=== PATIENT | male | born 1950 | race Caucasian/White ===

== ENCOUNTER 2016-11-10 18:31 | Inpatient (IN) | payer MEDICARE, BC ==
[~2016-11-10] VITALS: Ht 180.3 cm; Wt 121.3 kg
[~2016-11-10 18:31] MED LIST: OXYC40 PO
[2016-11-10 18:33] VITALS: BP 230/110; PULSE 77; RESP 24; TEMP 98.4; O2SAT 91
--- NOTE | 2016-11-10 18:46 | PD ---
HPI Chief Complaint: Neuro Symptoms/ Deficits Time Seen by Provider: 18:36 Travel History International Travel<30 days: No Contact w/Intl Traveler<30days: No Traveled to known affect area: No History of Present Illness HPI Patient is a 65-year-old male with hx of htn, who presents to emergency room for evaluation of possible CVA. Patient reports that he woke up from sleep 2 days ago and had weakness to his left upper extremity. Patient reports that he thought that his weakness was because he slept on it wrong, reports that it has been 2 days and he still has increased weakness to his left upper extremity. Reports that he doesn't feel weak to his left lower extremity, reports that he does feel like he is dragging his left leg when he walks. No hx of cva in the past. PFSH Social History Tobacco Use: No Allergies-Medications (Allergen,Severity, Reaction): Uncoded Allergies: EPOXY (Adverse Reaction, Intermediate, 11/10/16) Reported Meds & Prescriptions Reported Meds & Active Scripts Active Reported OxyCONTIN ER (Oxycodone HCl) 40 Mg Tabcr 40 Mg PO TID PRN Review of Systems General / Constitutional: No: Fever Eyes: No: Visual changes HENT: No: Headaches Cardiovascular: No: Chest Pain or Discomfort Respiratory: No: Shortness of Breath Gastrointestinal: No: Abdominal Pain Genitourinary: No: Dysuria Musculoskeletal: No: Pain Skin: No Rash Neurologic: Positive: Coordination Problem, Change in Mentation, No: Weakness Psychiatric: No: Depression Endocrine: No: Polydipsia Hematologic/Lymphatic: No: Easy Bruising Physical Exam Narrative GENERAL: mild distress SKIN: Warm and dry. HEAD: Atraumatic. Normocephalic. EYES: Pupils equal and round. No scleral icterus. No injection or drainage. ENT: No nasal bleeding or discharge. Mucous membranes pink and moist. NECK: Trachea midline. No JVD. CARDIOVASCULAR: Regular rate and rhythm. No murmur appreciated. RESPIRATORY: No accessory muscle use. Clear to auscultation. Breath sounds equal bilaterally. GASTROINTESTINAL: Abdomen soft, non-tender, nondistended. Hepatic and splenic margins not palpable. MUSCULOSKELETAL: No obvious deformities. No clubbing. No cyanosis. No edema. NEUROLOGICAL: Awake and alert. No obvious cranial nerve deficits. patient with left side upper extremity weakness. Normal speech. NIH Scale 1 PSYCHIATRIC: Appropriate mood and affect; insight and judgment normal. Data Data Last Documented VS Vital Signs Date Time Temp Pulse Resp B/P Pulse Ox O2 Delivery O2 Flow Rate FiO2 11/10/16 19:13 71 18 177/92 94 Room Air 11/10/16 18:33 98.4 Orders Electrocardiogram (11/10/16 18:37) Prothrombin Time / Inr (Pt) (11/10/16 18:37) Act Partial Throm Time (Ptt) (11/10/16 18:37) Complete Blood Count With Diff (11/10/16 18:37) Comprehensive Metabolic Panel (11/10/16 18:37) Creatine Kinase (Cpk) (11/10/16 18:37) Troponin I (11/10/16 18:37) Urinalysis - C+S If Indicated (11/10/16 18:37) Ct Brain W/O Iv Contrast(Rout) (11/10/16 18:37) Chest, Single Ap (11/10/16 18:37) Ecg Monitoring (11/10/16 18:37) Iv Access Insert/Monitor (11/10/16 18:37) Oximetry (11/10/16 18:37) Blood Glucose (11/10/16 18:37) Labetalol Inj (Trandate Inj) (11/10/16 19:15) CKMB (11/10/16 19:58) CKMB% (11/10/16 19:58) Admit Order (Ed Use Only) (11/10/16 21:23) Labs Laboratory Tests Test 11/10/16 11/10/16 18:45 19:58 White Blood Count 7.6 TH/MM3 Red Blood Count 4.94 MIL/MM3 Hemoglobin 15.5 GM/DL Hematocrit 45.0 % Mean Corpuscular Volume 91.1 FL Mean Corpuscular Hemoglobin 31.5 PG Mean Corpuscular Hemoglobin 34.5 % Concent Red Cell Distribution Width 13.2 % Platelet Count 204 TH/MM3 Mean Platelet Volume 8.3 FL Neutrophils (%) (Auto) 62.3 % Lymphocytes (%) (Auto) 28.3 % Monocytes (%) (Auto) 6.7 % Eosinophils (%) (Auto) 2.2 % Basophils (%) (Auto) 0.5 % Neutrophils # (Auto) 4.7 TH/MM3 Lymphocytes # (Auto) 2.1 TH/MM3 Monocytes # (Auto) 0.5 TH/MM3 Eosinophils # (Auto) 0.2 TH/MM3 Basophils # (Auto) 0.0 TH/MM3 CBC Comment DIFF FINAL Differential Comment Prothrombin Time 11.5 SEC Prothromb Time International 1.0 RATIO Ratio Activated Partial 26.9 SEC Thromboplast Time Sodium Level 141 MEQ/L Potassium Level 3.7 MEQ/L Chloride Level 106 MEQ/L Carbon Dioxide Level 25.9 MEQ/L Anion Gap 9 MEQ/L Blood Urea Nitrogen 19 MG/DL Creatinine 0.93 MG/DL Estimat Glomerular Filtration 81 ML/MIN Rate Random Glucose 111 MG/DL Calcium Level 8.4 MG/DL Total Bilirubin 0.3 MG/DL Aspartate Amino Transf 29 U/L (AST/SGOT) Alanine Aminotransferase 32 U/L (ALT/SGPT) Alkaline Phosphatase 69 U/L Total Creatine Kinase 440 U/L Creatine Kinase MB 7.5 NG/ML Creatine Kinase MB % 1.7 % Troponin I LESS THAN 0.02 NG/ML Total Protein 6.4 GM/DL Albumin 3.7 GM/DL MDM Medical Decision Making Medical Screen Exam Complete: Yes Emergency Medical Condition: Yes Interpretation(s) Vital Signs Date Time Temp Pulse Resp B/P Pulse Ox O2 Delivery O2 Flow Rate FiO2 11/10/16 18:49 95 Room Air 11/10/16 18:33 98.4 77 24 230/110 91 Differential Diagnosis CVA, TIA, electrolyte abnormality, arrythmia Narrative Course Patient is a 65-year-old male with hx of htn, who presents to emergency room for evaluation of possible CVA. Patient reports that he woke up from sleep 2 days ago and had weakness to his left upper extremity. Patient reports that he thought that his weakness was because he slept on it wrong, reports that it has been 2 days and he still has increased weakness to his left upper extremity. Reports that he doesn't feel weak to his left lower extremity, reports that he does feel like he is dragging his left leg when he walks. No hx of cva in the past. Labs as well as CT of the head ordered, EKG ordered. Patient was placed on a monitor technician upon arrival to the emergency room. Patient was signed out to the physician at change of shift. Pending labs as well as CAT scan of the head and dispo Latrice Helm DO Nov 10, 2016 18:46
[2016-11-10 18:49] VITALS: O2SAT 95
[2016-11-10 19:08] LABS: AUTOMATED NEUTROPHIL # 4.7 TH/MM3 (1.8-7.7); BASOPHIL % 0.5 % (0.0-2.0); EOSINOPHIL # 0.2 TH/MM3 (0-0.4); EOSINOPHIL % 2.2 % (0.0-4.0); HEMO FLAGS DIFF FINAL; LYMPH % 28.3 % (9.0-44.0); LYMPHOCYTE # 2.1 TH/MM3 (1.0-4.8); MEAN CELL VOLUME 91.1 FL (80.0-100.0); MEAN CORPUSCULAR HEMOGLOBIN 31.5 PG (27.0-34.0); MEAN CORPUSCULAR HGB CONC 34.5 % (32.0-36.0); MONO % 6.7 % (0.0-8.0); NEUT % 62.3 % (16.0-70.0); PLATELET COUNT 204 TH/MM3 (150-450); RED BLOOD COUNT 4.94 MIL/MM3 (4.50-5.90); RED CELL DISTRIBUTION WIDTH 13.2 % (11.6-17.2); WHITE BLOOD COUNT 7.6 TH/MM3 (4.0-11.0)
[2016-11-10 19:13] VITALS: BP 177/92; PULSE 71; RESP 18; O2SAT 94
--- NOTE | 2016-11-10 19:14 | RADRPT ---
EXAM DATE/TIME: 11/10/2016 19:02 [facility] COMPARISON: No previous studies available for comparison. INDICATIONS : Arm tingling for two days. RADIATION DOSE: 58.62 CTDIvol (mGy) MEDICAL HISTORY : Hypertension. SURGICAL HISTORY : None. ENCOUNTER: Initial ACUITY: 1 day PAIN SCALE: 0/10 LOCATION: cranial TECHNIQUE: Multiple contiguous axial images were obtained of the head. Using automated exposure control and adj ustment of the mA and/or kV according to patient size, radiation dose was kept as low as reasonably a chievable to obtain optimal diagnostic quality images. FINDINGS: CEREBRUM: The ventricles are normal for age. No evidence of midline shift, mass lesion, hemorrhage or acute in farction. No extra-axial fluid collections are seen. There is diffuse cerebral atrophy. Chronic low attenuation seen in the periventricular white matter. POSTERIOR FOSSA: The cerebellum and brainstem are intact. The 4th ventricle is midline. The cerebellopontine angle i s unremarkable. EXTRACRANIAL: The visualized portion of the orbits is intact. SKULL: The calvaria is intact. No evidence of skull fracture. CONCLUSION: No acute intracranial abnormality. Atrophy and chronic white matter changes. Nico Mendes MD on November 10, 2016 at 19:11 Board Certified Radiologist. This report was verified electronically.
[2016-11-10] MEDS ORDERED: LABETALOL HCL 100 MG/20 ML VIAL IV PUSH ONE (19:15)
[2016-11-10 19:23] LABS: APTT (PATIENT) 26.9 SEC (24.3-30.1); PROTHROMBIN TIME - PATIENT 11.5 SEC (9.8-11.6)
--- NOTE | 2016-11-10 19:27 | RADRPT ---
EXAM DATE/TIME: 11/10/2016 19:07 [facility] COMPARISON: No previous studies available for comparison. INDICATIONS : Left sided numbness. MEDICAL HISTORY : None. SURGICAL HISTORY : None. ENCOUNTER: Initial ACUITY: 1 day PAIN SCORE: 0/10 LOCATION: Bilateral chest FINDINGS: A single view of the chest demonstrates the lungs to be symmetrically aerated without evidence of mas s, infiltrate or effusion. The cardiomediastinal contours are unremarkable. Osseous structures are intact. CONCLUSION: No acute disease. Jona Lundberg MD on November 10, 2016 at 19:20 Board Certified Radiologist. This report was verified electronically.
[2016-11-10 21:09] LABS: ALKALINE PHOSPHATASE 69 U/L (45-117); ALT (GPT) 32 U/L (12-78); ANION GAP 9 MEQ/L (5-15); AST (GOT) 29 U/L (15-37); BICARBONATE 25.9 MEQ/L (21.0-32.0); BLOOD UREA NITROGEN 19 MG/DL (7-18); CHLORIDE 106 MEQ/L (98-107); CREATINE KINASE 440 U/L (39-308); GLOMERULAR FILTRATION RATE 81 ML/MIN (>89); POTASSIUM 3.7 MEQ/L (3.5-5.1); SODIUM (NA) 141 MEQ/L (136-145); TOTAL BILIRUBIN ADULT 0.3 MG/DL (0.2-1.0)
[2016-11-10 21:21] LABS: CKMB 7.5 NG/ML (0.5-3.6)
[2016-11-10] MEDS ORDERED: ENALAPRILAT 1.25 MG/ML VIAL IV PRN (21:45)
[2016-11-10] MEDS ORDERED: SODIUM CHLORIDE 0.9% FLUSH 5 ML FLUSH IVF PRN (21:45)
[2016-11-10] MEDS ORDERED: GLUCAGON 1 MG/ML VIAL IM/SQ PRN (21:45)
[2016-11-10] MEDS ORDERED: DEXTROSE 50% IN WATER 50 ML VIAL(D50) IV PUSH PRN (21:45)
[2016-11-10 22:00] VITALS: BP 153/78; PULSE 69; RESP 16; O2SAT 97
--- NOTE | 2016-11-10 22:52 | PD ---
Data Data Last Documented VS Vital Signs Date Time Temp Pulse Resp B/P Pulse Ox O2 Delivery O2 Flow Rate FiO2 11/10/16 19:13 71 18 177/92 94 Room Air 11/10/16 18:33 98.4 Orders Electrocardiogram (11/10/16 18:37) Prothrombin Time / Inr (Pt) (11/10/16 18:37) Act Partial Throm Time (Ptt) (11/10/16 18:37) Complete Blood Count With Diff (11/10/16 18:37) Comprehensive Metabolic Panel (11/10/16 18:37) Creatine Kinase (Cpk) (11/10/16 18:37) Troponin I (11/10/16 18:37) Urinalysis - C+S If Indicated (11/10/16 18:37) Ct Brain W/O Iv Contrast(Rout) (11/10/16 18:37) Chest, Single Ap (11/10/16 18:37) Ecg Monitoring (11/10/16 18:37) Iv Access Insert/Monitor (11/10/16 18:37) Oximetry (11/10/16 18:37) Blood Glucose (11/10/16 18:37) Labetalol Inj (Trandate Inj) (11/10/16 19:15) CKMB (11/10/16 19:58) CKMB% (11/10/16 19:58) Admit Order (Ed Use Only) (11/10/16 21:23) Labs Laboratory Tests Test 11/10/16 11/10/16 18:45 19:58 White Blood Count 7.6 TH/MM3 Red Blood Count 4.94 MIL/MM3 Hemoglobin 15.5 GM/DL Hematocrit 45.0 % Mean Corpuscular Volume 91.1 FL Mean Corpuscular Hemoglobin 31.5 PG Mean Corpuscular Hemoglobin 34.5 % Concent Red Cell Distribution Width 13.2 % Platelet Count 204 TH/MM3 Mean Platelet Volume 8.3 FL Neutrophils (%) (Auto) 62.3 % Lymphocytes (%) (Auto) 28.3 % Monocytes (%) (Auto) 6.7 % Eosinophils (%) (Auto) 2.2 % Basophils (%) (Auto) 0.5 % Neutrophils # (Auto) 4.7 TH/MM3 Lymphocytes # (Auto) 2.1 TH/MM3 Monocytes # (Auto) 0.5 TH/MM3 Eosinophils # (Auto) 0.2 TH/MM3 Basophils # (Auto) 0.0 TH/MM3 CBC Comment DIFF FINAL Differential Comment Prothrombin Time 11.5 SEC Prothromb Time International 1.0 RATIO Ratio Activated Partial 26.9 SEC Thromboplast Time Sodium Level 141 MEQ/L Potassium Level 3.7 MEQ/L Chloride Level 106 MEQ/L Carbon Dioxide Level 25.9 MEQ/L Anion Gap 9 MEQ/L Blood Urea Nitrogen 19 MG/DL Creatinine 0.93 MG/DL Estimat Glomerular Filtration 81 ML/MIN Rate Random Glucose 111 MG/DL Calcium Level 8.4 MG/DL Total Bilirubin 0.3 MG/DL Aspartate Amino Transf 29 U/L (AST/SGOT) Alanine Aminotransferase 32 U/L (ALT/SGPT) Alkaline Phosphatase 69 U/L Total Creatine Kinase 440 U/L Creatine Kinase MB 7.5 NG/ML Creatine Kinase MB % 1.7 % Troponin I LESS THAN 0.02 NG/ML Total Protein 6.4 GM/DL Albumin 3.7 GM/DL MDM Supervised Visit with CROW: No Narrative Course This is a 65-year-old male who presents to the emergency department with 2 days of left upper extremity weakness and some difficulty walking. Dr. eHlm was concerned the patient may have had a stroke. She was placed on a monitor and an IV was established. Labs are obtained which were reassuring. CT of the head was negative for intracranial hemorrhage. Patient will be admitted for stroke assessment. He is quite hypertensive and Dr. Helm treated him with 10 mg of IV labetalol. Physician Communication Physician Communication Discussed with Dr. Brasher Diagnosis Primary Impression: Weakness Admitting Information Admitting Physician Requests: Admit Marianela Polanco MD Nov 10, 2016 22:52
[2016-11-11] VITALS (9 sets, daily range): BP systolic 129–186; BP diastolic 67–94; PULSE 56–75; RESP 14–21; TEMP 97.7–98.4; O2SAT 96–98
[2016-11-11 00:43] LABS: BLOOD, URINE NEG (NEG); GLUCOSE,URINE NEG (NEG); KETONE, URINE NEG (NEG); MUCUS URINE MANY /lpf (OCC); NITRITE,URINE NEG (NEG); PH, URINE 5.5 (5.0-8.5); RENAL EPITHELIAL CELLS <1 /hpf; SQUAMOUS EPITHELIAL CELL URINE 5 /hpf (0-5); URINE COLOR YELLOW (YELLW/STRAW)
[2016-11-11 00:45] LABS: COMMENT (UR) CATH-CULT NOT IND; CULTURE IF INDICATED CATH CULTURE NOT IND
--- NOTE | 2016-11-11 01:25 | HHI.HP ---
[facility] Primary Care Physician No Primary Care Physician Admission Diagnosis weakness, possible stroke Diagnoses: (1) Left arm weakness (2) Chronic back pain Chief Complaint: Left arm weakness Travel History International Travel<30 Days: No Contact w/Intl Traveler <30 Da: No Traveled to Known Affected Are: No History of Present Illness The patient is a 65-year-old male who presented to the emergency department with complaint of left upper extremity weakness. This started about 2 days ago. 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 He states that he knocked it over and also knocked over plates that were on the same table. His states that his gait has been abnormal, telling him that he looked like he was drunk. He denies headache, vision changes, chest pain, or dyspnea. He denies paresthesias. He has not noticed any left leg weakness. Review of Systems Constitutional: DENIES: Fever, Chills, Night Sweats Eyes: DENIES: Blurred vision, Vision loss Ears, nose, mouth, throat: DENIES: Hearing loss Respiratory: DENIES: Cough, Wheezing, Sputum production, Shortness of breath Cardiovascular: DENIES: Chest pain, Palpitations, Dyspnea on Exertion, Lower Extremity Edema Gastrointestinal: DENIES: Abdominal pain, Constipation, Diarrhea, Nausea, Vomiting Genitourinary: DENIES: Urinary frequency, Urinary incontinence, Urgency, Hematuria, Dysuria, Nocturia Musculoskeletal: DENIES: Joint pain, Muscle aches Integumentary: DENIES: Pruritus, Rash Hematologic/lymphatic: DENIES: Bruising Neurologic: COMPLAINS OF: Abnormal gait, Localized weakness, DENIES: Headache , Paresthesias Past Family Social History Past Medical History Hypertension Chronic back pain Past Surgical History Bilateral knee replacement Back surgery 3 Reported Medications OxyContin ER 40 mg 3 times a day as needed for pain Allergies: Uncoded Allergies: EPOXY (Adverse Reaction, Intermediate, 11/10/16) Family History Heart disease Social History Denies alcohol, tobacco, or illicit drug use. Physical Exam Vital Signs Vital Signs Date Time Temp Pulse Resp B/P Pulse Ox O2 Delivery O2 Flow Rate FiO2 11/11/16 01:05 75 14 139/67 97 Room Air 11/10/16 22:00 69 16 153/78 97 Room Air 11/10/16 19:13 71 18 177/92 94 Room Air 11/10/16 18:49 95 Room Air 11/10/16 18:33 98.4 77 24 230/110 91 Physical Exam GENERAL: Well-nourished, well-developed male] in no acute distress. HEENT: Normocephalic, atraumatic. Pupils equal, round and reactive. Extraocular movements intact. No scleral icterus. No injection or drainage. Oropharynx is clear. Mucous membranes are moist. CARDIOVASCULAR: Regular rate and rhythm without murmurs, gallops, or rubs. RESPIRATORY: Clear to auscultation. No wheezes, rales, or rhonchi. Breathing is non-labored. GASTROINTESTINAL: Abdomen soft, non-tender, nondistended. EXTREMITIES: No lower extremity edema. No calf tenderness. PSYCH: Alert and oriented x 3. NEURO: Cranial nerves II through XII are grossly intact. There is left upper extremity weakness, barrer and tacker strength 3-4/5 compared to 5/5 on the right. Left lower extremity strength 4/5, right lower extremity 5/5. Laboratory Laboratory Tests Test 11/10/16 11/10/16 11/11/16 18:45 19:58 00:20 White Blood Count 7.6 Red Blood Count 4.94 Hemoglobin 15.5 Hematocrit 45.0 Mean Corpuscular Volume 91.1 Mean Corpuscular Hemoglobin 31.5 Mean Corpuscular Hemoglobin 34.5 Concent Red Cell Distribution Width 13.2 Platelet Count 204 Mean Platelet Volume 8.3 Neutrophils (%) (Auto) 62.3 Lymphocytes (%) (Auto) 28.3 Monocytes (%) (Auto) 6.7 Eosinophils (%) (Auto) 2.2 Basophils (%) (Auto) 0.5 Neutrophils # (Auto) 4.7 Lymphocytes # (Auto) 2.1 Monocytes # (Auto) 0.5 Eosinophils # (Auto) 0.2 Basophils # (Auto) 0.0 CBC Comment DIFF FINAL Differential Comment Prothrombin Time 11.5 Prothromb Time International 1.0 Ratio Activated Partial 26.9 Thromboplast Time Sodium Level 141 Potassium Level 3.7 Chloride Level 106 Carbon Dioxide Level 25.9 Anion Gap 9 Blood Urea Nitrogen 19 Creatinine 0.93 Estimat Glomerular Filtration 81 Rate Random Glucose 111 Calcium Level 8.4 Total Bilirubin 0.3 Aspartate Amino Transf 29 (AST/SGOT) Alanine Aminotransferase 32 (ALT/SGPT) Alkaline Phosphatase 69 Total Creatine Kinase 440 Creatine Kinase MB 7.5 Creatine Kinase MB % 1.7 Troponin I LESS THAN 0.02 Total Protein 6.4 Albumin 3.7 Urine Color YELLOW Urine Turbidity HAZY Urine pH 5.5 Urine Specific [place] 1.030 Urine Protein TRACE Urine Glucose (UA) NEG Urine Ketones NEG Urine Occult Blood NEG Urine Nitrite NEG Urine Bilirubin NEG Urine Urobilinogen LESS THAN 2.0 Urine Leukocyte Esterase NEG Urine RBC 3 Urine WBC 4 Urine Squamous Epithelial 5 Cells Urine Renal Epithelial Cells <1 Urine Mucus MANY Microscopic Urinalysis Comment CATH-CULT NOT IND Result Diagram: 11/10/16184411/10/161957 Assessment and Plan Assessment and Plan 1. Left upper extremity weakness: Concern for CVA. Onset of symptoms was [address] of the head is negative. Consult neurology. MRI/MRA of the brain ordered. PT/OT/ST. Allow permissive hypertension. Check 2-D echocardiogram, Holter monitor. Neurochecks. 2. Chronic back pain: Patient takes OxyContin as needed at home. We'll have oxycodone available as needed. 3. DVT prophylaxis: AMALIA Portillo. Caleb Brasher MD Nov 11, 2016 01:25
[2016-11-11] MEDS: INSULIN ASPART SUPPLEMENTAL SCALE SQ SCH ×4 (07:00→21:00)
[2016-11-11 07:27] LABS: CREATINE KINASE 361 U/L (39-308); HDL CHOLESTEROL 36.2 MG/DL (40.0-60.0); LDL CHOLESTEROL 107 MG/DL (0-99)
[2016-11-11 07:39] LABS: CKMB 5.9 NG/ML (0.5-3.6)
[2016-11-11] MEDS: SODIUM CHLOR 0.9% 1000 ML INJ 1,000 ML IV SCH ×2 (07:47→21:07)
--- NOTE | 2016-11-11 08:38 | MB ---
cc: RUBÉNCARLOS EDUARDO DATE OF CONSULTATION 11/11/2016 HISTORY OF PRESENT ILLNESS A 65-year-old right-handed man with a history of hypertension, hypercholesterolemia, prostate cancer. He has been on a beta-nathalia, evidently has some bundle branch block he tells me. About two days ago, he started having difficulty walking and then yesterday he noticed that his left arm was clumsy, seemed to be getting a bit worse and subsequently came into the hospital. No chest pain, palpitations or headache. REVIEW OF SYSTEMS On further review of systems he denies any diabetes, hypercholesterolemia, UT, CABG, stent, angioplasty, A fib, Coumadin, renal hepatic or pulmonary disease, thyroid disease, lupus, ulcer, seizure, stroke. He has not been taking an aspirin a day or any blood thinners. The onset of symptoms started when he awoke from sleep two days ago. SOCIAL HISTORY Nonsmoker or drinker. Lives with his . FAMILY HISTORY Negative for cancer, seizure or stroke. MEDICATIONS 1. Oxycodone. 2. I believe he is on a beta-nathalia also, carvedilol. PHYSICAL EXAMINATION VITAL SIGNS: 230/110 to 139/67. NECK: There were no carotid bruits. HEART: Regular rhythm. I do not detect a murmur. NEUROLOGIC: Pupils are equal. Visual galan are full. Extraocular movements intact, without nystagmus. Face symmetric with normal station. Tongue was midline. He has a slight left drift. He had normal strength in the right upper and bilateral lower extremities. Left upper extremity deltoid, triceps and biceps with normal strength. 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 He can wiggle his fingers a little bit. DTRs are absent throughout. Toes downgoing bilaterally. Pinprick was diminished in the left leg compared to the right, otherwise intact including the left hand. There is some minimal ataxia on the left [id number]. LABORATORY DATA CBC was normal. UA was negative. Basic metabolic profile was normal. LFTs were normal. CPK was elevated. Troponin was normal. Albumin normal. LDL cholesterol 107, total cholesterol 186 CAT SCAN OF THE BRAIN Negative. CHEST X-RAY Negative. TELEMETRY Sinus rhythm overnight. No A-fib. IMPRESSION It does appear to be a stroke. RECOMMENDATIONS 1. We will do an MRI of the brain, an MRA of the neck. 2. Check some additional blood work. 3. An echo and Holter has been ordered. I will be following him with you in the hospital. 4. He would qualify for a statin at this time. I would defer to the med team to get that started, put him on some IV fluids. 5. I would increase his aspirin to 325 a day. MD CADEN Gutierrez/ERWIN /6:48 AM /7:26 AM
[2016-11-11] MEDS ORDERED: ASPIRIN 81 MG CHEW TAB PO SCH (09:00)
[2016-11-11 10:34] LABS: FREE T4 0.96 NG/DL (0.76-1.46)
[2016-11-11 11:22] LABS: HEMOGLOBIN A1b 0.8 %; HEMOGLOBIN Ao 86.1 %; HEMOGLOBIN F 1.2 %; HEMOGLOBIN LA1C 1.9 %; HEMOGLOBIN P3 3.6 %
[2016-11-11] MEDS: SODIUM CHLORIDE 0.9% FLUSH 5 ML FLUSH IVF SCH (11:50)
[2016-11-11] MEDS: ASPIRIN EC 325 MG TABEC PO SCH (11:50)
--- NOTE | 2016-11-11 12:06 | EC ---
Study Study Date:11/11/2016 STUDY CONCLUSIONS SUMMARY - Left ventricle: The cavity size was normal. Wall thickness was normal. Systolic function was normal. The estimated ejection fraction was in the range of 60% to 65%. Wall motion was normal; there were no regional wall motion abnormalities. - Aortic valve: Valve area: 3.21cm^2 (Vmax). Impressions: No cardiac source of emboli was indentified. If LV function is below 40, please consider prescribing an ACEI or ARB or document rationale for non-use. PROCEDURE DATA STUDY STATUS: Elective. Procedure: Transthoracic echocardiography. Image quality was good. Scanning was performed from the parasternal, apical, and subcostal acoustic windows. Study completion: The patient tolerated the procedure well. Transthoracic echocardiography. M-mode, complete 2D, complete spectral Doppler, and color Doppler. Height: Height: 71in. Weight: Weight: 263.5lb. Body mass index: BMI: 36.8kg/m^2. Body surface area: BSA: 2.37m^2. Patient status: Inpatient. CARDIAC ANATOMY LEFT VENTRICLE: The cavity size was normal. Wall thickness was normal. Systolic function was normal. The estimated ejection fraction was in the range of 60% to 65%. Wall motion was normal; there were no regional wall motion abnormalities. AORTIC VALVE: Trileaflet; normal thickness leaflets. Doppler: Transvalvular velocity was within the normal range. There was no stenosis. No regurgitation. Valve area: 3.21cm^2 (Vmax). Indexed valve area: 1.35cm^2/m^2 (Vmax). AORTA: Aortic root: The aortic root was normal in size. MITRAL VALVE: Structurally normal valve. Doppler: Transvalvular velocity was within the normal range. There was no evidence for stenosis. No regurgitation. Valve area by pressure half-time: 3.73cm^2. Indexed valve area by pressure half-time: 1.57cm^2/m^2. Peak gradient: 2mm Hg (D). LEFT ATRIUM: The atrium was normal in size. RIGHT VENTRICLE: The cavity size was normal. Wall thickness was normal. PULMONIC VALVE: Doppler: Transvalvular velocity was within the normal range. There was no evidence for stenosis. No regurgitation. TRICUSPID VALVE: Structurally normal valve. Doppler: Transvalvular velocity was within the normal range. No regurgitation. Peak gradient: 36mm Hg (D). PULMONARY ARTERY: The main pulmonary artery was normal-sized. Systolic pressure was within the normal range. RIGHT ATRIUM: The atrium was normal in size. PERICARDIUM: There was no pericardial effusion. SYSTEMIC VEINS: Inferior vena cava: The vessel was normal in size. Patient weight: 263.5lb _Ejection fraction:_ 65-75% _Fractional shortening:_ 32% up to 5Kg 5-11.5Kg 11.6-22.9Kg 23-45Kg 45-57Kg Aortic Root 7-13 <17 13-22 17-27 17-27 LA diam 6-13 <23 24-38 33-47 37-40 RVID 10-17 7-15 7-15 7-18 8-17 LVIDd 12-22 <32 24-38 33-47 37-40 LVPW 2-4 3-6 5-7 6-8 7-8 IVS 2-4 3-6 5-7 6-8 7-8 BASIC MEASUREMENTS ADULT NORMAL Left ventricle LV internal dimension, ED, chordal 45.1 mm 43-52 level, PLAX LV internal dimension, ES, chordal 30.2 mm 23-38 level, PLAX Fractional shortening, chordal level, 33 % >29 PLAX LV posterior wall thickness, ED 13.1 mm IVS/LVPW ratio, ED 0.98 <1.3 Volume, ED, MOD, 1-plane 108 ml Volume, ES, MOD, 1-plane 50 ml Ejection fraction, MOD, 1-plane 54 % Stroke volume, MOD, 1-plane 58 ml Volume index, ED, MOD, 1-plane 46 ml/m^2 Volume index, ES, MOD, 1-plane 21 ml/m^2 Stroke index, MOD, 1-plane 24.5 ml/m^2 Ventricular septum Septal thickness, ED 12.8 mm Aortic valve Leaflet separation 21 mm 15-26 Left atrium Anterior-posterior dimension 40 mm Anterior-posterior dimension index 1.69 cm/m^2 <2.2 BASIC MEASUREMENTS ADULT NORMAL Aortic valve Leaflet separation 21 mm 15-26 Aorta Root diameter, ED 31 mm 20-37 DOPPLER MEASUREMENTS ADULT NORMAL Aortic valve Peak velocity, S 155 cm/s Valve area, Vmax 3.21 cm^2 Valve area index, Vmax 1.35 cm^2/m^2 Mitral valve Peak E-wave velocity 77 cm/s Peak A-wave velocity 76.5 cm/s Pressure half-time 59 ms Peak gradient, D 2 mm Hg Peak E/A ratio 1 Valve area, pressure half-time 3.73 cm^2 Valve area index, pressure half-time 1.57 cm^2/m^2 Tricuspid valve Peak gradient, D 36 mm Hg Maximal inflow velocity 201 cm/s Systemic veins Estimated CVP 10 mm Hg Pulmonic valve Peak velocity, S 130 cm/s LEGEND: Mean values are shown as u=mean value. Asterisk (*) dennis values outside specified normal range. Prepared and signed by [place] [id number]
[2016-11-11] MEDS ORDERED: GADODIAMIDE PF 287 MG/ML 20 ML VIAL (for RAD MRI) IV ONE (12:12)
--- NOTE | 2016-11-11 12:31 | RADRPT ---
EXAM DATE/TIME: 11/11/2016 11:01 [facility] COMPARISON: No previous studies available for comparison. INDICATIONS : Paralysis left side. CONTRAST: 20 cc Omniscan (gadodiamide) IV MEDICAL HISTORY : Hypertension. SURGICAL HISTORY : Total knee replacement, right. Total knee replacement, left. Prostate surgery. ENCOUNTER: Initial ACUITY: 2 day PAIN SCORE: 0/10 LOCATION: head TECHNIQUE: Multiplanar, multisequence MRI of the brain was performed both prior to and following the administrat ion of paramagnetic contrast. FINDINGS: CEREBRUM: The ventricles and cortical sulci are widened. No evidence of midline shift, mass lesion, hemorrhage or acute infarction. No extraaxial fluid collections are seen. The pituitary gland and suprasellar cistern are normal in configuration. WHITE MATTER: There is increased signal on the flair images throughout the cerebral white matter. There is an area of signal at the mallee on the diffusion weighted images at the right parietal region 1.5 cm likely r epresenting a subacute or infarction. There some minimal peripheral enhancement in this region. POSTERIOR FOSSA: The cerebellum and brainstem are intact. The 4th ventricle is midline. The cerebellopontine angle is unremarkable. The cerebellar tonsils are normal in position. DIFFUSION IMAGING: No focal areas of restricted diffusion are seen. No evidence of acute infarction. EXTRACRANIAL: The visualized portions of the orbits and paranasal sinuses are unremarkable. POST-CONTRAST: No abnormal areas of parenchymal or dural enhancement. No evidence of blood-brain barrier breakdown. CONCLUSION: 1. Age-related atrophy. 2. Widespread demyelination in the cerebral white matter likely from small vessel ischemic change. 3. 1.5 cm area of signal abnormality in the diffusion weighted images at the right parietal white mat ter likely representing a subacute area of infarction. Nico Parsons MD on November 11, 2016 at 12:13 Board Certified Radiologist. This report was verified electronically.
--- NOTE | 2016-11-11 12:33 | RADRPT ---
EXAM DATE/TIME: 11/11/2016 11:01 [facility] COMPARISON: No previous studies available for comparison. INDICATIONS : CVA. Left sided paralysis. MEDICAL HISTORY : Hypertension. SURGICAL HISTORY : Total knee replacement, right. Total knee replacement, left. Prostate surgery. ENCOUNTER: Initial ACUITY: 1 day PAIN SCORE: 0/10 LOCATION: head Please note a normal MRA of the brain does not entirely exclude the possibility of a small aneurysm, nor the possibility of distal intracranial vessel disease. TECHNIQUE: 3D time of flight MRA was performed. Source images, multiplanar STS MIP, and 3D volume MIP reconstru ctions were reviewed. FINDINGS: There is excellent visualization of the major intracranial arteries out to the second-order branch ve ssels. There is no evidence for aneurysm, vessel truncation or stenosis, and no evidence for vascula r malformation. The internal carotid arteries are patent bilaterally. There is a small left A1 segmen t of the anterior cerebral artery. The A2 segments are symmetric. The basilar artery is primarily a continuation of the left vertebral artery. The right vertebral artery appears to end as the posterior inferior cerebellar artery. No aneurysm is seen. CONCLUSION: No acute disease. Nico Parsons MD on November 11, 2016 at 12:30 Board Certified Radiologist. This report was verified electronically.
--- NOTE | 2016-11-11 12:59 | RADRPT ---
EXAM DATE/TIME: 11/11/2016 11:01 [facility] COMPARISON: No previous studies available for comparison. INDICATIONS : Stroke. Left sided paralysis. CONTRAST: 20 cc Omniscan (gadodiamide) IV MEDICAL HISTORY : Hypertension. SURGICAL HISTORY : Total knee replacement, right. Total knee replacement, left. Prostate surgery. ENCOUNTER: Initial ACUITY: 2 day PAIN SCORE: 0/10 LOCATION: neck Percent stenosis is calculated using the diameter of the stenotic region over the diameter of the nor mal distal internal carotid artery. TECHNIQUE: Bolus infused MRA of the extracranial circulation was performed using a neurovascular coil. Post pro cessing was performed including rotating subvolume maximum intensity projections of each carotid sagar ry, rotating full volume maximum intensity projections of both carotid arteries, sagittal and coronal sliding thin slab reformations of each carotid artery, and left oblique sliding thin slab reformatio n through the aortic arch to include the origin of the arch branch vessels. FINDINGS: AORTIC ARCH: The left vertebral artery arises directly from the aortic arch. No evidence of ostial narrowing. RIGHT CAROTID: The common carotid artery is intact. The carotid bulb has a normal configuration without ulceration or narrowing. The internal carotid artery lumen is smooth without stenosis. The external carotid ar ashlyn is intact. LEFT CAROTID: The common carotid artery is intact. The carotid bulb has a normal configuration without ulceration or narrowing. The internal carotid artery lumen is smooth without stenosis. The internal carotid art neha is tortuous. The external carotid artery is intact. VERTEBRALS: The left vertebral artery arises from the aorta directly. Left vertebral artery is larger than the ri ght vertebral artery. The right vertebral artery ends as the posterior inferior cerebellar artery. Le ft vertebral artery continues as the basilar artery. CONCLUSION: No acute disease. Nico Parsons MD on November 11, 2016 at 12:55 Board Certified Radiologist. This report was verified electronically.
--- NOTE | 2016-11-11 13:30 | PD.CONS ---
HPI Service Rehabilitation Medicine Consult Requested By Reason for Consult Comprehensive rehabilitation evaluation. Primary Care Physician No Primary Care Physician History of Present Illness Mr. Gale is a 65 y/o M patient with PMHx of HTN, prostate cancer who was in his usual state that consisted of free ambulation and independence with ADLs until about 11/08/16 when he started with some weakness in the Lt hand. He presented to the emergency department with complaint of left upper extremity weakness on 11/10/16. He denies paresthesias. He has not noticed any left leg weakness. Brain MRI showed a Rt parietal area representing subacute area of infarction. No disease noted in the neck and head MRA. Echo showed 60-65% of EF. Rehab notes are pending. PM&R has been consulted for rehab recs. Review of Systems Eyes: DENIES: Diplopia Ears, nose, mouth, throat: DENIES: Hearing loss Respiratory: DENIES: Cough Cardiovascular: DENIES: Chest pain Gastrointestinal: DENIES: Abdominal pain Genitourinary: DENIES: Urinary incontinence Musculoskeletal: DENIES: Joint pain Integumentary: DENIES: Pruritus Hematologic/lymphatic: DENIES: Bruising Neurologic: COMPLAINS OF: Localized weakness, DENIES: Abnormal gait, Paresthesias Psychiatric: DENIES: Anxiety, Confusion Past Family Social History Allergies: Uncoded Allergies: EPOXY (Adverse Reaction, Intermediate, 11/10/16) Past Medical History HTN, prostate cancer Current Medications Current Medications Medications (Trade) Dose Ordered Sig/Jorge Route Start Time Stop Time Status Last Admin (NS Flush) 2 ml BID IVF 11/11/16 09:00 11/11/16 11:50 (NS Flush) 2 ml UNSCH PRN IVF 11/10/16 21:45 (Vasotec Inj) 1.25 mg Q4H PRN IV 11/10/16 21:45 (D50w (Vial) Inj) 25 ml UNSCH PRN IV PUSH 11/10/16 21:45 (Glucagon Inj) 1 mg UNSCH PRN IM/SQ 11/10/16 21:45 (Roxicodone) 5 mg Q4H PRN PO 11/11/16 01:30 (Roxicodone) 10 mg Q4H PRN PO 11/11/16 01:30 Aspirin 325 mg 325 mg DAILY PO 11/11/16 09:00 11/11/16 11:50 (NS 1000 ml Inj) 1,000 ml @ 75 mls/hr [id number] IV 11/11/16 07:47 Family History No hx of stroke + hx of CAD Social History Denies any toxic habits Exam I&O / VS Vital Signs Date Time Temp Pulse Resp B/P Pulse Ox O2 Delivery O2 Flow Rate FiO2 11/11/16 10:32 96 21 11/11/16 08:00 97.7 57 16 158/90 97 11/11/16 02:10 98.0 56 20 186/86 96 11/11/16 01:05 75 14 139/67 97 Room Air 11/10/16 22:00 69 16 153/78 97 Room Air 11/10/16 19:13 71 18 177/92 94 Room Air 11/10/16 18:49 95 Room Air 11/10/16 18:33 98.4 77 24 230/110 91 General: No acute distress, Other (Follows commands) HEENT NC, AT Respiratory: Lungs CTA, Non-labored respirations, Symmetrical expansion Gastrointestinal: Positive Bowel Sounds, Non-Distended, Non-Tender Cardiovascular: Normal rate Skin: Other (No rash noted) Musculoskeletal: ROM (Full), Swelling (None noted) Psychiatric: Cooperative, Appropriate mood & affect Orientation: oriented to Self, oriented to Place, oriented to Situation Neurologic: Speech (Fluent) Motor: Right Upper Extremity (5/5), Left Upper Extremity (weak 4/5), Right Lower Extremity (5/5), Left Lower Extremity (5/5) Sensory Grossly intact to light touch Assessment and Plan Diagnosis: (1) CVA (cerebral infarction) Plan Mr. Gale is a 65 y/o M patient presenting with a subacute stroke in the Rt parietal area 1. PT and OT notes are pending. Based on my examination, he is able to stand. He reports that he walked to the bathroom, no dizziness or lightheadedness. No balance issues. If FIM scores as per therapy notes showed that he is Mod I with transfers, and walking he should be able to be discharge home with outpatient therapies for OT to work primarily on the Lt arm. At this point I think he is too high level for inpatient rehab. Discussed with patient, and nurse. Will continue to follow while in the hospital. If patient status changes or if it does not seem to be as independent, will re-assess the recs. Thanks for the consult. Rigo Saleem MD Nov 11, 2016 13:30
[2016-11-11 13:56] LABS: RAPID PLASMA REAGIN SCREEN NON-REACTIVE (NON-REACTVE)
--- NOTE | 2016-11-11 14:51 | EKG ---
Date Performed: 11/10/2016 Time Performed: 18:40:42 PTAGE: 65 years EKG: Sinus rhythm MARKED LEFT AXIS DEVIATION RIGHT BUNDLE BRANCH BLOCK MODERATE VOLTAGE CRITERIA FOR LVH, CONSIDER NOR MAL VARIANT ABNORMAL ECG INTERPRETATION BASED ON A DEFAULT AGE OF 40 YEARS NO PREVIOUS TRACING DOCTOR: Zeynep Loomis Interpretating Date/Time 11/11/2016 14:48:43
--- NOTE | 2016-11-11 15:53 | HHI.PR ---
Subjective Remarks f/u for left arm weakness. 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 Denied any other weakness. patient is ambulating and good PO intake. His at the bedside. Denied any PATRICK, N/V. He stated he is doing well. He was never on ASA. Objective Vitals Vital Signs Date Time Temp Pulse Resp B/P Pulse Ox O2 Delivery O2 Flow Rate FiO2 11/11/16 12:00 98.4 62 16 139/82 98 11/11/16 10:32 96 21 11/11/16 08:00 97.7 57 16 158/90 97 11/11/16 02:10 98.0 56 20 186/86 96 11/11/16 01:05 75 14 139/67 97 Room Air 11/10/16 22:00 69 16 153/78 97 Room Air 11/10/16 19:13 71 18 177/92 94 Room Air 11/10/16 18:49 95 Room Air 11/10/16 18:33 98.4 77 24 230/110 91 Result Diagram: 11/10/16 1845 11/10/161957 Objective Remarks GENERAL: in NAD CARDIOVASCULAR: Regular rate and rhythm without murmurs, gallops, or rubs. RESPIRATORY: Breath sounds equal bilaterally. No accessory muscle use. GASTROINTESTINAL: Abdomen soft, non-tender, nondistended. NEURO: AAO X 3. CN 2-12 intact. sensation and coordination grossly intact. 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 otherwise strength intact. Medications and IVs Current Medications Labetalol HCl (Trandate Inj) 10 mg ONCE ONCE IV PUSH Last administered on 11/10 19:15; Start 11/10/16 at 19:15; Stop 11/10/16 at 19:16; Status DC IV Flush (NS Flush) 2 ml BID IVF Last administered on 11/11/16 11:50; Start at 09:00 IV Flush (NS Flush) 2 ml UNSCH PRN IVF FLUSH AFTER USING IV ACCESS; Start 11/10 at 21:45 Enalaprilat (Vasotec Inj) 1.25 mg Q4H PRN IV For SBP > 220 or DBP > 120; Start 11/10/16 at 21:45 Aspirin (Aspirin Chew) 81 mg DAILY PO ; Start 11/11/16 at 09:00; Stop 11/11/16 at 09:00; Status DC Insulin Aspart (NovoLOG SUPPLEMENTAL SCALE) 1 ACHS SLIDING SCALE SQ ; Start at 07:00 Dextrose (D50w (Vial) Inj) 25 ml UNSCH PRN IV PUSH HYPOGLYCEMIA-SEE COMMENTS; Start 11/10/16 at 21:45 Glucagon (Glucagon Inj) 1 mg UNSCH PRN IM/SQ HYPOGLYCEMIA-SEE COMMENTS; Start 11/10/16 at 21:45 Oxycodone HCl (Roxicodone) 5 mg Q4H PRN PO PAIN SCALE 3 TO 5; Start 11/11/16 at 01:30 Oxycodone HCl (Roxicodone) 10 mg Q4H PRN PO PAIN SCALE 6 TO 10; Start 11/11/16 at 01:30 Aspirin 325 mg 325 mg DAILY PO Last administered on 11/11/16 11:50; Start at 09:00 Sodium Chloride (NS 1000 ml Inj) 1,000 ml @ 75 mls/hr [id number] IV ; Start at 07:47 Gadodiamide (Omniscan Pf Inj) 20 ml STK-MED ONCE IV Last administered on 12:12; Start 11/11/16 at 12:12; Stop 11/11/16 at 12:13; Status DC A/P Problem List: (1) Left arm weakness ICD Code: R29.898 Status: Acute (2) Chronic back pain ICD Code: M54.9 Status: Acute Assessment and Plan right parietal subacute infarct -deficit is left hand weakness. -CT scan negative. found on MRI. ECHO negative. -pending PT/OT rec -neurologist ff. -allow permissive but probably can control BP better tomorrow. -LDL >100 so will start statin. Patient education on risk, benefits and side effects of statin and wants to start medication. -on ASA. Chronic back pain: Patient takes OxyContin as needed at home. We'll have oxycodone available as needed. .DVT prophylaxis: SCDs, AMALIA bell. Discharge Planning once clear by neurologist can be d/c to home with home health vs home with outpatient OT. Jennifer Casanova MD Nov 11, 2016 15:53
[2016-11-11] MEDS: ATORVASTATIN 40 MG TAB PO SCH (21:15)
[2016-11-12] VITALS (9 sets, daily range): BP systolic 124–161; BP diastolic 82–98; PULSE 54–65; RESP 18–20; TEMP 96.6–98.4; O2SAT 93–98
[2016-11-12] MEDS: SODIUM CHLORIDE 0.9% FLUSH 5 ML FLUSH IVF SCH ×3 (06:20→20:58)
[2016-11-12] MEDS: INSULIN ASPART SUPPLEMENTAL SCALE SQ SCH ×4 (06:20→20:58)
--- NOTE | 2016-11-12 07:35 | HHI.PR ---
Subjective Remarks vtach run on tele Objective Vital Signs Date Time Temp Pulse Resp B/P Pulse Ox O2 Delivery O2 Flow Rate FiO2 11/12/16 04:23 98.4 54 20 124/82 95 11/12/16 00:23 97.7 64 20 161/98 97 11/11/16 23:33 58 11/11/16 20:24 98.0 63 21 158/94 97 11/11/16 19:56 96 21 11/11/16 16:30 98.3 68 18 129/83 97 11/11/16 12:00 98.4 62 16 139/82 98 11/11/16 10:32 96 21 11/11/16 08:00 97.7 57 16 158/90 97 I/O 11/11/16 11/11/16 11/11/16 11/12/16 11/12/16 11/12/16 07:00 15:00 23:00 07:00 15:00 23:00 Intake Total 360 ml 480 ml 240 ml Balance 360 ml 480 ml 240 ml Intake Oral 360 ml 480 ml 240 ml # Voids 3 3 # Bowel Movements 0 0 Result Diagram: 11/10/165 11/10/161957 Other Results mrax2 neg mri acute r two small cortical cva b12 166 lab ok on statin Objective Remarks no focal abn Assessment and Plan Assessment and Plan imp i dw him two small r cortical cva and vt echo nl b12 shots statin have cards see and will consider coumadin i will dw cards likely cardioembolic some enhancement of areas no edema Ole Conklin MD Nov 12, 2016 07:35
[2016-11-12] MEDS: CYANOCOBALAMIN 1000 MCG/ML VIAL SQ SCH (09:00)
[2016-11-12] MEDS: ASPIRIN EC 325 MG TABEC PO SCH (09:00)
--- NOTE | 2016-11-12 09:37 | PD.CONS ---
HPI Service CV Consult Requested By Reason for Consult v-tach Primary Care Physician No Primary Care Physician History of Present Illness Here with HTN for CVA. He presented with left sided weakness and brain study confirm stroke. There is concern for embolic source. Transthoracic echo shoes no evidence of embolic source. Then last night telemetry caught a 12 beat nonsustained wide QRS complex tachycardia. He was asymptomatic. He denies chest pain, shortness of breath or palpitations (Jarad Khoury) Review of Systems Consitutional: DENIES: Fatigue, Fever, Chills, Weight gain, Weight loss Eyes: DENIES: Amaurosis Fugax, Change in vision HEENT: DENIES: Lightheadedness, Change in hearing Respiratory: DENIES: See HPI, Cough, Snoring, Shortness of breath, Wheezing, Sputum production Cardiovascular: COMPLAINS OF: See HPI Gastrointestinal: DENIES: Nausea, Vomiting, Change in bowel habits, Reflux, Bloody stools, Melena Genitourinary: DENIES: Urinary incontinence, Difficulty voiding Integumentary: DENIES: Rash Neurologic: DENIES: Tingling or numbness, Memory problems, Poor Balance, Stroke symptoms Musculoskeletal: DENIES: Joint pain, Muscle pain, Limited range of motion, Back pain Psychiatric: DENIES: Anxiety, Depression, Sleep disturbances Hematologic: DENIES: Bruising tendencies, Bleeding tendencies Endocrine: DENIES: Weight gain, Weight loss, Thyroid disease (Jarad Khoury ) Past Family Social History Allergies: Uncoded Allergies: EPOXY (Adverse Reaction, Intermediate, 11/10/16) Past Medical History Hypertension Chronic back pain Past Surgical History Bilateral knee replacement Back surgery 3 Reported Medications Reported Meds & Active Scripts Active Reported OxyCONTIN ER (Oxycodone HCl) 40 Mg Tabcr 40 Mg PO TID PRN Active Ordered Medications Current Medications Medications (Trade) Dose Ordered Sig/Jorge Route Start Time Stop Time Status Last Admin (NS Flush) 2 ml BID IVF 11/11/16 09:00 11/12/16 06:20 (NS Flush) 2 ml UNSCH PRN IVF 11/10/16 21:45 (Vasotec Inj) 1.25 mg Q4H PRN IV 11/10/16 21:45 (D50w (Vial) Inj) 25 ml UNSCH PRN IV PUSH 11/10/16 21:45 (Glucagon Inj) 1 mg UNSCH PRN IM/SQ 11/10/16 21:45 (Roxicodone) 5 mg Q4H PRN PO 11/11/16 01:30 (Roxicodone) 10 mg Q4H PRN PO 11/11/16 01:30 11/12/16 06:19 Aspirin 325 mg 325 mg DAILY PO 11/11/16 09:00 11/11/16 11:50 (NS 1000 ml Inj) 1,000 ml @ 75 mls/hr [id number] IV 11/11/16 07:47 (Lipitor) 40 mg HS PO 11/11/16 21:00 11/11/16 21:15 (Vitamin B12 Inj) 1,000 mcg DAILY SQ 11/12/16 09:00 11/15/16 08:59 Family History Father who was a smoker AMI age 47 Social History Denies alcohol, tobacco, or illicit drug use. (Jarad Khoury) Physical Exam Vital Signs Vital Signs Date Time Temp Pulse Resp B/P Pulse Ox O2 Delivery O2 Flow Rate FiO2 11/12/16 08:00 97.8 60 18 161/88 95 11/12/16 04:23 98.4 54 20 124/82 95 11/12/16 00:23 97.7 64 20 161/98 97 11/11/16 23:33 58 11/11/16 20:24 98.0 63 21 158/94 97 11/11/16 19:56 96 21 11/11/16 16:30 98.3 68 18 129/83 97 11/11/16 12:00 98.4 62 16 139/82 98 11/11/16 10:32 96 21 Physical Exam GENERAL: Well-nourished, well-developed patient in no apparent distress. NECK: No JVD. No carotid bruit. CARDIOVASCULAR: Regular rate and rhythm. S1/S2 no murmur, rub, or gallop. RESPIRATORY: No accessory muscle use. Clear to auscultation. Breath sounds equal bilaterally. GASTROINTESTINAL: Abdomen soft, non-tender, nondistended. MUSCULOSKELETAL: Extremities without clubbing, cyanosis, or edema. (Jarad Khoury) Result Diagram: 11/10/16 1845 11/10/161957 Assessment and Plan Problem List: (1) Wide-complex tachycardia Assessment and Plan 24 hour Holter pending and he will need ischemic work up with Lexiscan SPECT. The is no evidence for a-fib and embolic source on echo (Jarad Khoury) Assessment and Plan CVA - confirmed with imaging. Probable cardioembolic etiology. discussed case with neuro. plan for CATHIE tomorrow. VT - no obvious trigger. asymptomatic. EF normal. Lexiscan to rule out ischemic trigger. consider low dose BB (Bernabe Cazares MD) Jarad Khoury Nov 12, 2016 09:37 Bernabe Cazares MD Nov 12, 2016 12:21
[2016-11-12 09:38] LABS: BICARBONATE 24.3 MEQ/L (21.0-32.0); MAGNESIUM 2.4 MG/DL (1.5-2.5); POTASSIUM 3.6 MEQ/L (3.5-5.1)
[2016-11-12] MEDS: SODIUM CHLOR 0.9% 1000 ML INJ 1,000 ML IV SCH (10:27)
--- NOTE | 2016-11-12 15:22 | HHI.PR ---
Subjective Remarks f/u for CVA patient had some runs of VT in AM and was asymptomatic. Denied any CP, palpitations, SOB. he stated he feels that his strength is improving. No new focal neurological deficits. Objective Vitals Vital Signs Date Time Temp Pulse Resp B/P Pulse Ox O2 Delivery O2 Flow Rate FiO2 11/12/16 11:49 96.6 58 18 141/85 98 11/12/16 10:07 93 21 11/12/16 08:00 97.8 60 18 161/88 95 11/12/16 04:23 98.4 54 20 124/82 95 11/12/16 00:23 97.7 64 20 161/98 97 11/11/16 23:33 58 11/11/16 20:24 98.0 63 21 158/94 97 11/11/16 19:56 96 21 11/11/16 16:30 98.3 68 18 129/83 97 I/O 11/11/16 11/11/16 11/11/16 11/12/16 11/12/16 11/12/16 07:00 15:00 23:00 07:00 15:00 23:00 Intake Total 360 ml 480 ml 240 ml Balance 360 ml 480 ml 240 ml Intake Oral 360 ml 480 ml 240 ml # Voids 3 3 # Bowel Movements 0 0 Result Diagram: 11/10/16 1845 11/12/16 0906 Objective Remarks GENERAL: in NAD CARDIOVASCULAR: Regular rate and rhythm without murmurs, gallops, or rubs. RESPIRATORY: Breath sounds equal bilaterally. No accessory muscle use. GASTROINTESTINAL: Abdomen soft, non-tender, nondistended. NEURO: AAO X 3. CN 2-12 intact. sensation and coordination grossly intact. 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 otherwise strength intact. Medications and IVs Current Medications Labetalol HCl (Trandate Inj) 10 mg ONCE ONCE IV PUSH Last administered on 11/10 19:15; Start 11/10/16 at 19:15; Stop 11/10/16 at 19:16; Status DC IV Flush (NS Flush) 2 ml BID IVF Last administered on 11/12/16 09:00; Start at 09:00 IV Flush (NS Flush) 2 ml UNSCH PRN IVF FLUSH AFTER USING IV ACCESS; Start 11/10 at 21:45 Enalaprilat (Vasotec Inj) 1.25 mg Q4H PRN IV For SBP > 220 or DBP > 120; Start 11/10/16 at 21:45 Aspirin (Aspirin Chew) 81 mg DAILY PO ; Start 11/11/16 at 09:00; Stop 11/11/16 at 09:00; Status DC Insulin Aspart (NovoLOG SUPPLEMENTAL SCALE) 1 ACHS SLIDING SCALE SQ ; Start at 07:00 Dextrose (D50w (Vial) Inj) 25 ml UNSCH PRN IV PUSH HYPOGLYCEMIA-SEE COMMENTS; Start 11/10/16 at 21:45 Glucagon (Glucagon Inj) 1 mg UNSCH PRN IM/SQ HYPOGLYCEMIA-SEE COMMENTS; Start 11/10/16 at 21:45 Oxycodone HCl (Roxicodone) 5 mg Q4H PRN PO PAIN SCALE 3 TO 5; Start 11/11/16 at 01:30; Stop 11/12/16 at 15:18; Status DC Oxycodone HCl (Roxicodone) 10 mg Q4H PRN PO PAIN SCALE 6 TO 10 Last administered on 11/12/16 06:19; Start 11/11/16 at 01:30; Stop 11/12/16 at 15:18 ; Status DC Aspirin 325 mg 325 mg DAILY PO Last administered on 11/12/16 09:00; Start at 09:00 Sodium Chloride (NS 1000 ml Inj) 1,000 ml @ 75 mls/hr [id number] IV ; Start at 07:47 Gadodiamide (Omniscan Pf Inj) 20 ml STK-MED ONCE IV Last administered on 12:12; Start 11/11/16 at 12:12; Stop 11/11/16 at 12:13; Status DC Atorvastatin Calcium (Lipitor) 40 mg HS PO Last administered on 11/11/16 21:15 ; Start 11/11/16 at 21:00 Cyanocobalamin (Vitamin B12 Inj) 1,000 mcg DAILY SQ ; Start 11/12/16 at 09:00; Stop 11/15/16 at 08:59 Zolpidem Tartrate (Ambien) 5 mg HS PRN PO INSOMNIA; Start 11/12/16 at 12:30 Tramadol HCl (Ultram) 50 mg Q8H PRN PO pain; Start 11/12/16 at 15:30; Status UNV A/P Problem List: (1) Left arm weakness ICD Code: R29.898 Status: Acute (2) Chronic back pain ICD Code: M54.9 Status: Acute Assessment and Plan right parietal subacute infarct -deficit is left hand weakness. -CT scan negative. found on MRI. ECHO negative. -neurologist ff. -LDL >100 so on statin. Patient education on risk, benefits and side effects of statin and wants to start medication. -on ASA. runs of VT -assistant production editor consulted. -recommended nuclear stress test and CATHIE. Chronic back pain -patient told me he is on tramdol no oxycodone. will start tramadol. Insomnia -will give ambien .DVT prophylaxis: SCDs, AMALIA bell. Discharge Planning patient will get nuclear stress test and CATHIE. pending results to determine further treatment. Jennifer Casanova MD Nov 12, 2016 15:22
[2016-11-12] MEDS: ZOLPIDEM TARTRATE 5 MG TAB PO PRN (20:58)
[2016-11-12] MEDS: ATORVASTATIN 40 MG TAB PO SCH (20:58)
[2016-11-12] MEDS: traMADol HCL 50 MG TAB PO PRN (20:58)
[2016-11-13] VITALS (8 sets, daily range): BP systolic 150–191; BP diastolic 72–99; PULSE 63–95; RESP 18–20; TEMP 96.2–99.4; O2SAT 92–98
[2016-11-13] MEDS: INSULIN ASPART SUPPLEMENTAL SCALE SQ SCH ×4 (07:00→19:59)
--- NOTE | 2016-11-13 07:58 | PD.CARD.PN ---
Subjective Subjective Remarks c/o left hand weakness Objective Vital Signs / I&O Vital Signs Date Time Temp Pulse Resp B/P Pulse Ox O2 Delivery O2 Flow Rate FiO2 11/13/16 04:25 96.2 65 19 191/98 95 11/13/16 00:19 96.5 67 20 169/85 95 11/12/16 20:26 96.9 62 20 160/90 97 11/12/16 19:48 65 11/12/16 19:23 94 21 11/12/16 16:00 97.3 61 18 146/86 97 11/12/16 11:49 96.6 58 18 141/85 98 11/12/16 10:07 93 21 11/12/16 08:00 97.8 60 18 161/88 95 I/O 11/12/16 11/12/16 11/12/16 11/13/16 11/13/16 11/13/16 07:00 15:00 23:00 07:00 15:00 23:00 Intake Total 240 ml 1200 ml 480 ml 240 ml Balance 240 ml 1200 ml 480 ml 240 ml Intake Oral 240 ml 1200 ml 480 ml 240 ml # Voids 3 3 2 2 # Bowel Movements 0 1 0 0 Physical Exam GENERAL: Well-nourished, well-developed patient in no apparent distress. NECK: No JVD. No carotid bruit. CARDIOVASCULAR: Regular rate and rhythm. S1/S2 no murmur, rub, or gallop. RESPIRATORY: No accessory muscle use. Clear to auscultation. Breath sounds equal bilaterally. GASTROINTESTINAL: Abdomen soft, non-tender, nondistended. MUSCULOSKELETAL: Extremities without clubbing, cyanosis, or edema. Laboratory Laboratory Tests Test 11/12/16 09:06 Sodium Level 139 MEQ/L Potassium Level 3.6 MEQ/L Chloride Level 105 MEQ/L Carbon Dioxide Level 24.3 MEQ/L Anion Gap 10 MEQ/L Blood Urea Nitrogen 12 MG/DL Creatinine 0.84 MG/DL Estimat Glomerular Filtration 91 ML/MIN Rate Random Glucose 115 MG/DL Calcium Level 8.7 MG/DL Magnesium Level 2.4 MG/DL Assessment and Plan Problem List: (1) Wide-complex tachycardia Assessment and Plan CVA - CATHIE today to r/o cardioembolic source, No further VT Jarad Khoury Nov 13, 2016 07:58
[2016-11-13] MEDS ORDERED: REGADENOSON INJ 0.4 MG/5 ML SYR ONE (08:55)
--- NOTE | 2016-11-13 09:16 | HHI.PR ---
Subjective Remarks vtach run on tele 2 day ago sr overnoc last noc Objective Vital Signs Date Time Temp Pulse Resp B/P Pulse Ox O2 Delivery O2 Flow Rate FiO2 11/13/16 08:00 97.6 63 18 177/99 95 11/13/16 04:25 96.2 65 19 191/98 95 11/13/16 00:19 96.5 67 20 169/85 95 11/12/16 20:26 96.9 62 20 160/90 97 11/12/16 19:48 65 11/12/16 19:23 94 21 11/12/16 16:00 97.3 61 18 146/86 97 11/12/16 11:49 96.6 58 18 141/85 98 11/12/16 10:07 93 21 I/O 11/12/16 11/12/16 11/12/16 11/13/16 11/13/16 11/13/16 07:00 15:00 23:00 07:00 15:00 23:00 Intake Total 240 ml 1200 ml 480 ml 240 ml Balance 240 ml 1200 ml 480 ml 240 ml Intake Oral 240 ml 1200 ml 480 ml 240 ml # Voids 3 3 2 2 # Bowel Movements 0 1 0 0 Result Diagram: 11/10/16 1845 11/12/16905 Objective Remarks normal gait and speech Assessment and Plan Assessment and Plan imp i dw him and two small r cortical cva and vt echo nl b12 shots statin i think the est thing for him is coumadin until proven otherwise with vt and crtical cva likely cardioembolic i would like to start him on coumadin unless justo shows something major [place] but he needs to have a daily am inr set up and an md to see that inr every day by 2 pm and dose his daily coumadin dose for 6 pm each night including fri and friday and i need med team to set this up i l/m for dr mcgrath going to [place] now i dw with him and his seems to have a better grasp on the situation than he does she is going out of town? i am not confident he can get job done alone and she should probably stay in town if he gets started on coumadin he also needs his bp lower <140/70 at this point Ole Conklin MD Nov 13, 2016 09:16
--- NOTE | 2016-11-13 10:51 | RADRPT ---
EXAM DATE/TIME: 11/12/2016 13:52 [facility] COMPARISON: No previous studies available for comparison. INDICATIONS : Coronary artery disease. DOSE: 30.0 mCi Tc99m Myoview at stress. 30.1 mCi Tc99m Myoview at rest. 0.4 mg Lexiscan STRESS SYMPTOMS: Shortness of breath. EJECTION FRACTION: 61% MEDICAL HISTORY : Hypertension. Stroke SURGICAL HISTORY : Knees and lumbar spine. ENCOUNTER: Initial ACUITY: 1 day PAIN SCALE: 0/10 LOCATION: Substernal chest TECHNIQUE: The patient underwent pharmacologic stress with infusion of prescribed dose. Continuous ECG tracing was monitored during stress. Gated SPECT imaging was performed after stress and conventional SPECT i maging was performed at rest. The examination was performed on a SPECT/CT scanner, both attenuation and non-corrected datasets were reviewed. FINDINGS: DISTRIBUTION: The maximum perfused segment at stress is in the septal wall. PERFUSION STUDY: There is decreased activity throughout the inferior wall on the stress images. Is also some decreased activity a much stress images at the basal portion of the septal, anterior, and lateral dumont. The d ifference in activity is in the order of 20.30% GATED STUDY: There is intact wall motion and thickening without hypokinetic or dyskinetic segments. CONCLUSION: Suspected ischemia throughout the inferior wall and at the basal portions of the septum, anterior and lateral dumont. RISK CATEGORY: Intermediate (1-3% Annual Mortality Rate) Nico Parsons MD on November 13, 2016 at 10:46 Board Certified Radiologist. This report was verified electronically.
[2016-11-13] MEDS: SODIUM CHLORIDE 0.9% FLUSH 5 ML FLUSH IVF SCH ×2 (11:22→20:13)
[2016-11-13] MEDS: ASPIRIN EC 325 MG TABEC PO SCH (11:22)
[2016-11-13] MEDS: CYANOCOBALAMIN 1000 MCG/ML VIAL SQ SCH (11:22)
[2016-11-13] MEDS ORDERED: INSULIN HUMAN REGULAR 1,000 UNITS/10 ML VIAL SQ PRN (13:15)
[2016-11-13] MEDS: LACTATED RINGER'S 1000 ML IV SCH (13:15)
[2016-11-13] MEDS ORDERED: METOPROLOL TARTRATE 25 MG TAB PO PRN (13:15)
[2016-11-13 13:42] LABS: ANA SCREEN NEG (NEG)
[2016-11-13] MEDS ORDERED: MISCELLANEOUS NURSING INFORMATION XX PRN (14:00)
--- NOTE | 2016-11-13 14:45 | ETE ---
Study Study Date:11/13/2016 STUDY CONCLUSIONS SUMMARY - Left ventricle: The cavity size was normal. Wall thickness was normal. Systolic function was normal. The estimated ejection fraction was in the range of 55% to 60%. Wall motion was normal; there were no regional wall motion abnormalities. - Aortic valve: No evidence of vegetation. - Mitral valve: No evidence of vegetation. Mild regurgitation. - Left atrium: No evidence of thrombus in the atrial cavity or appendage. - Right atrium: No evidence of thrombus in the atrial cavity or appendage. - Atrial septum: No defect or patent foramen ovale was identified. There was no atrial level shunt. - Tricuspid valve: No evidence of vegetation. - Pulmonic valve: No evidence of vegetation. If LV function is below 40, please consider prescribing an ACEI or ARB or document rationale for non-use. PROCEDURE DATA Consent: The risks, benefits, and alternatives to the procedure were explained to the patient and informed consent was obtained. Procedure: Initial setup. The patient was brought to the laboratory in the fasting state. Intravenous access was obtained. Surface ECG leads and pulse oximetric signals were monitored. Sedation. Conscious sedation was administered by cardiology staff. Transesophageal echocardiography. Topical anesthesia was obtained using viscous lidocaine. A transesophageal probe was inserted by the attending charting clerk. Image quality was good. Intravenous contrast (agitated saline) was administered to evaluate for intracardiac shunting. Study completion: All IVs inserted during the procedure were removed. The patient tolerated the procedure well. There were no complications. Transesophageal echocardiography. 2D, complete spectral Doppler, and color Doppler. CARDIAC ANATOMY LEFT VENTRICLE: The cavity size was normal. Wall thickness was normal. Systolic function was normal. The estimated ejection fraction was in the range of 55% to 60%. Wall motion was normal; there were no regional wall motion abnormalities. AORTIC VALVE: Structurally normal valve. Trileaflet; normal thickness leaflets. Cusp separation was normal. No evidence of vegetation. Doppler: No significant regurgitation. Aorta: - There was no atheroma. There was no evidence for dissection. Aortic root: The aortic root was not dilated. Ascending aorta: The ascending aorta was normal in size. Aortic arch: The aortic arch was normal in size. Descending aorta: The descending aorta was normal in size. MITRAL VALVE: Structurally normal valve. Leaflet separation was normal. No evidence of vegetation. Doppler: Mild regurgitation. LEFT ATRIUM: The atrium was normal in size. No evidence of thrombus in the atrial cavity or appendage. The appendage was morphologically a left appendage, multilobulated, and of normal size. Emptying velocity was normal. ATRIAL SEPTUM: No defect or patent foramen ovale was identified. There was no atrial level shunt. RIGHT VENTRICLE: The cavity size was normal. Wall thickness was normal. Systolic function was normal. PULMONIC VALVE: Structurally normal valve. No evidence of vegetation. TRICUSPID VALVE: Structurally normal valve. Leaflet separation was normal. No evidence of vegetation. Doppler: Trace regurgitation. PULMONARY ARTERY: The main pulmonary artery was normal-sized. RIGHT ATRIUM: The atrium was normal in size. No evidence of thrombus in the atrial cavity or appendage. The appendage was morphologically a right appendage. PERICARDIUM: There was no pericardial effusion. Prepared and signed by Bernabe Cazares [id number]
[2016-11-13] MEDS: LISINOPRIL 10 MG TAB PO SCH (15:44)
[2016-11-13] MEDS: METOPROLOL TARTRATE 50 MG TAB PO SCH ×2 (15:50→20:13)
[2016-11-13 17:34] LABS: PROTHROMBIN TIME - PATIENT 11.4 SEC (9.8-11.6)
--- NOTE | 2016-11-13 17:46 | HHI.PR ---
Subjective Remarks f/u for CVA patient in clothes ready to leave. He stated Dr. Conklin and Dr. Cazares stated he can leave. Otherwise no complaints. Denied any CP, palpitations, changes in his focal neurological deficit. Still has left hand weakness that improved. Objective Vitals Vital Signs Date Time Temp Pulse Resp B/P Pulse Ox O2 Delivery O2 Flow Rate FiO2 11/13/16 12:00 98.1 67 18 167/96 93 11/13/16 08:12 98 21 11/13/16 08:00 97.6 63 18 177/99 95 11/13/16 04:25 96.2 65 19 191/98 95 11/13/16 00:19 96.5 67 20 169/85 95 11/12/16 20:26 96.9 62 20 160/90 97 11/12/16 19:48 65 11/12/16 19:23 94 21 I/O 11/12/16 11/12/16 11/12/16 11/13/16 11/13/16 11/13/16 07:00 15:00 23:00 07:00 15:00 23:00 Intake Total 240 ml 1200 ml 480 ml 240 ml Balance 240 ml 1200 ml 480 ml 240 ml Intake Oral 240 ml 1200 ml 480 ml 240 ml # Voids 3 3 2 2 # Bowel Movements 0 1 0 0 Result Diagram: 11/10/16 1845 11/12/16 0906 Objective Remarks GENERAL: in NAD CARDIOVASCULAR: Regular rate and rhythm without murmurs, gallops, or rubs. RESPIRATORY: Breath sounds equal bilaterally. No accessory muscle use. GASTROINTESTINAL: Abdomen soft, non-tender, nondistended. NEURO: AAO X 3. CN 2-12 intact. sensation and coordination grossly intact. 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 otherwise strength intact. Medications and IVs Current Medications Labetalol HCl (Trandate Inj) 10 mg ONCE ONCE IV PUSH Last administered on 11/10 19:15; Start 11/10/16 at 19:15; Stop 11/10/16 at 19:16; Status DC IV Flush (NS Flush) 2 ml BID IVF Last administered on 11/13/16 11:22; Start at 09:00 IV Flush (NS Flush) 2 ml UNSCH PRN IVF FLUSH AFTER USING IV ACCESS; Start 11/10 at 21:45 Enalaprilat (Vasotec Inj) 1.25 mg Q4H PRN IV For SBP > 220 or DBP > 120; Start 11/10/16 at 21:45 Aspirin (Aspirin Chew) 81 mg DAILY PO ; Start 11/11/16 at 09:00; Stop 11/11/16 at 09:00; Status DC Insulin Aspart (NovoLOG SUPPLEMENTAL SCALE) 1 ACHS SLIDING SCALE SQ ; Start at 07:00 Dextrose (D50w (Vial) Inj) 25 ml UNSCH PRN IV PUSH HYPOGLYCEMIA-SEE COMMENTS; Start 11/10/16 at 21:45 Glucagon (Glucagon Inj) 1 mg UNSCH PRN IM/SQ HYPOGLYCEMIA-SEE COMMENTS; Start 11/10/16 at 21:45 Oxycodone HCl (Roxicodone) 5 mg Q4H PRN PO PAIN SCALE 3 TO 5; Start 11/11/16 at 01:30; Stop 11/12/16 at 15:18; Status DC Oxycodone HCl (Roxicodone) 10 mg Q4H PRN PO PAIN SCALE 6 TO 10 Last administered on 11/12/16 06:19; Start 11/11/16 at 01:30; Stop 11/12/16 at 15:18 ; Status DC Aspirin 325 mg 325 mg DAILY PO Last administered on 11/13/16 11:22; Start at 09:00; Stop 11/13/16 at 13:54; Status DC Sodium Chloride (NS 1000 ml Inj) 1,000 ml @ 75 mls/hr [id number] IV ; Start at 07:47 Gadodiamide (Omniscan Pf Inj) 20 ml STK-MED ONCE IV Last administered on 12:12; Start 11/11/16 at 12:12; Stop 11/11/16 at 12:13; Status DC Atorvastatin Calcium (Lipitor) 40 mg HS PO Last administered on 11/12/16 20:58 ; Start 11/11/16 at 21:00 Cyanocobalamin (Vitamin B12 Inj) 1,000 mcg DAILY SQ Last administered on 11:22; Start 11/12/16 at 09:00; Stop 11/15/16 at 08:59 Zolpidem Tartrate (Ambien) 5 mg HS PRN PO INSOMNIA Last administered on 20:58; Start 11/12/16 at 12:30 Tramadol HCl (Ultram) 50 mg Q8H PRN PO pain 1-10 Last administered on 20:58; Start 11/12/16 at 15:30 Regadenoson 0.4 mg 0.4 mg STK-MED ONCE .ROUTE Last administered on 11/13/16 08 :55; Start 11/13/16 at 08:55; Stop 11/13/16 at 08:56; Status DC Lactated Ringer's (Lr 1000 ml Inj) 1,000 ml @ 30 mls/hr Q24H IV ; Start at 13:15 Insulin Human Regular (NovoLIN R INJ) See Protocol Table ... UNSCH X1 PRN SQ SEE PROTOCOL; Start 11/13/16 at 13:15; Stop 11/14/16 at 13:14 Metoprolol Tartrate (Lopressor) 25 mg UNSCH X1 PRN PO SEE LABEL COMMENTS; Start 11/13/16 at 13:15; Stop 11/14/16 at 13:14 Metoprolol Tartrate (Lopressor) 50 mg Q12HR PO Last administered on 11/13/16 15:50; Start 11/13/16 at 13:30 Lisinopril (Prinivil) 10 mg DAILY PO Last administered on 11/13/16 15:44; Start 11/13/16 at 13:30 Miscellaneous Information 1 UNSCH PRN XX SEE LABEL COMMENTS; Start 11/13/16 at 14:00; Stop 11/16/16 at 13:59 Aspirin (Ecotrin Ec) 81 mg DAILY PO ; Start 11/14/16 at 09:00; Stop 11/14/16 at 09:00; Status DC Apixaban (Eliquis) 5 mg BID PO ; Start 11/13/16 at 21:00; Stop 11/13/16 at 21:00 ; Status DC Aspirin 325 mg 325 mg DAILY PO ; Start 11/14/16 at 09:00 Pharmacy Profile Note (Coumadin Consult Pharmacy) 0 ml @ 0 mls/hr UNSCH OTHER ; Start 11/13/16 at 14:45; Status Hold Warfarin Sodium (Coumadin) 5 mg DAILY@16 PO ; Start 11/13/16 at 16:00 Patient Medication Teaching (Coumadin Booklet) 1 ONCE ONCE XX ; Start 11/13/16 at 16:15; Stop 11/13/16 at 16:16; Status DC A/P Problem List: (1) Left arm weakness ICD Code: R29.898 Status: Acute (2) Chronic back pain ICD Code: M54.9 Status: Acute Assessment and Plan right parietal subacute infarct -deficit is left hand weakness. -CT scan negative. found on MRI. ECHO negative. CATHIE negative. -neurologist ff. -LDL >100 so on statin. Patient education on risk, benefits and side effects of statin and wants to start medication. -on ASA. -Neurologist concerns for cardioembolic event due to runs of [place] so wants patient on coumadin. Per neurologist needs INR check DAILY and wants it to be read by physician DAILY until he gets back on Friday. -per Neuro once INR is therapeutic can d/c ASA. runs of VT -denture laboratory technician consulted. -nuclear stress test reviewed and CATHIE negative. -per Cards he is cleared for discharge from cardiac standpoint. uncontrolled HTN -start metoprolol and lisinopril. Chronic back pain -on tramadol. Insomnia -on ambien DVT prophylaxis: SCDs, AMALIA bell. Discharge Planning Patient has to stay in house daily for INR and coumadin dosing until he can be see by Dr. Conklin as outpatient for INR check. He does not have a PCP to monitor his INR. Jennifer Casanova MD Nov 13, 2016 17:46
[2016-11-13] MEDS: WARFARIN SOD 5 MG TAB PO SCH (18:07)
[2016-11-13] MEDS: ZOLPIDEM TARTRATE 5 MG TAB PO PRN (20:11)
[2016-11-13] MEDS: traMADol HCL 50 MG TAB PO PRN (20:12)
[2016-11-13] MEDS: ATORVASTATIN 40 MG TAB PO SCH (20:12)
--- NOTE | 2016-11-13 20:41 | HM ---
Date Performed: 11/11/2016 Time Performed: 15:36:00 HOOKUP DATE: 11/11/16 03:36:00 PM Mon ANALYSIS START TIME: 11/11/2016 3:41:00 PM ANALYSIS END TIME: 11/12/2016 3:45:00 PM PATIENT AGE: 65 PATIENT HEIGHT PATIENT WEIGHT DRUG LIST PATIENT DIAGNOSIS: WEAKNESS POSSIBLE STROKE TEST NARRATIVE: The patient's average heart rate was 62 BPM. No episodes of tachycardia wer e noted. Heart rates less than 50 BPM were noted < 1% of the time. No pauses exceeding 2.0 secon ds were noted. 43 ventricular ectopics, which represented < 1% of the total beat count, were note d. The highest ventricular ectopic frequency occurred from 07:00 AM to 08:00 AM Tue. During this ti me 16 VE(s) occurred. Ventricular ectopics were observed as 27 isolated beat(s) and as 1 run(s). 623 supraventricular ectopics, which represented 1% of the total beat count, were noted. The highes t supraventricular ectopic frequency occurred from 12:00 AM to 01:00 AM Tue. During this time 136 SV E(s) occurred. In channel 1, a single episode of ST depression (defined as -1.0 mm or more) occur red at 02:42:15 AM Tue with a maximum depression of -3.[address] mm[address] No episodes of ST depression (defined a s -1.0 mm or more) were noted in channel 2. No episodes of ST depression (defined as -1.0 mm or more ) were noted in channel 3. NO PATIENT DIARY RETURNED TEST INTERPRETATION: Sinus rhythm IVCD Frequent PACs Occasional PVCs Brief episodes of NSAT Signed by : Sameer Singh
[2016-11-13] MEDS ORDERED: APIXABAN 5 MG TABLET PO SCH (21:00)
[2016-11-14 00:14] VITALS: BP 125/61; PULSE 18; RESP 18; TEMP 97.2; O2SAT 92
[2016-11-14 04:20] VITALS: BP 118/72; PULSE 54; RESP 18; TEMP 97.4; O2SAT 92
[2016-11-14] MEDS: INSULIN ASPART SUPPLEMENTAL SCALE SQ SCH ×2 (05:47→11:05)
[2016-11-14 07:06] LABS: PROTHROMBIN TIME - PATIENT 11.5 SEC (9.8-11.6)
[2016-11-14 08:00] VITALS: BP 133/75; PULSE 54; RESP 18; TEMP 97.4; O2SAT 96
--- NOTE | 2016-11-14 08:50 | PD.CARD.PN ---
Subjective Subjective Remarks dressed, eating breakfast and ready to go home. denies chest pain, SOB or palpitation. left hand weakness improving Objective Medications Current Medications Medications (Trade) Dose Ordered Sig/Jorge Route Start Time Stop Time Status Last Admin (NS Flush) 2 ml BID IVF 11/11/16 09:00 11/13/16 11:22 (NS Flush) 2 ml UNSCH PRN IVF 11/10/16 21:45 (Vasotec Inj) 1.25 mg Q4H PRN IV 11/10/16 21:45 (D50w (Vial) Inj) 25 ml UNSCH PRN IV PUSH 11/10/16 21:45 Glucagon 1 mg 1 mg UNSCH PRN IM/SQ 11/10/16 21:45 (NS 1000 ml Inj) 1,000 ml @ 75 mls/hr [id number] IV 11/11/16 07:47 (Lipitor) 40 mg HS PO 11/11/16 21:00 11/13/16 20:12 (Vitamin B12 Inj) 1,000 mcg DAILY SQ 11/12/16 09:00 11/15/16 08:59 11/13/16 11:22 (Ambien) 5 mg HS PRN PO 11/12/16 12:30 11/13/16 20:11 Tramadol HCl 50 mg 50 mg Q8H PRN PO 11/12/16 15:30 11/13/16 20:12 (Lr 1000 ml Inj) 1,000 ml @ 30 mls/hr Q24H IV 11/13/16 13:15 (Lopressor) 50 mg Q12HR PO 11/13/16 13:30 11/13/16 20:13 (Prinivil) 10 mg DAILY PO 11/13/16 13:30 11/13/16 15:44 Miscellaneous Information 1 UNSCH PRN XX 11/13/16 14:00 11/16/16 13:59 Aspirin 325 mg 325 mg DAILY PO 11/14/16 09:00 (Coumadin Consult Pharmacy) 0 ml @ 0 mls/hr UNSCH OTHER 11/13/16 14:45 (Coumadin) 5 mg DAILY@16 PO 11/13/16 16:00 11/13/16 18:07 (Protonix) 40 mg DAILY PO 11/14/16 09:00 (Coumadin) 2.5 mg ONCE PO 11/14/16 16:00 11/14/16 21:00 Vital Signs / I&O Vital Signs Date Time Temp Pulse Resp B/P Pulse Ox O2 Delivery O2 Flow Rate FiO2 11/14/16 08:00 97.4 54 18 133/75 96 11/14/16 04:20 97.4 54 18 118/72 92 11/14/16 00:14 97.2 18 18 125/61 92 11/13/16 20:18 99.4 89 19 150/72 92 11/13/16 18:11 93 21 11/13/16 16:00 99.2 95 18 163/91 97 11/13/16 12:00 98.1 67 18 167/96 93 I/O 11/13/16 11/13/16 11/13/16 11/14/16 11/14/16 11/14/16 07:00 15:00 23:00 07:00 15:00 23:00 Intake Total 240 ml 240 ml 480 ml 240 ml Balance 240 ml 240 ml 480 ml 240 ml Intake Oral 240 ml 240 ml 480 ml 240 ml # Voids 2 3 2 1 # Bowel Movements 0 1 1 0 Physical Exam SKIN: Warm and dry. HEAD: Atraumatic. Normocephalic. ENT: No nasal bleeding or discharge. NECK: Trachea midline. No JVD. CARDIOVASCULAR: Regular rate and rhythm. No murmur RESPIRATORY: No accessory muscle use. Clear to auscultation. Breath sounds equal bilaterally. GASTROINTESTINAL: Abdomen soft, non-tender, nondistended. MUSCULOSKELETAL: Extremities without clubbing, cyanosis, or edema. No obvious deformities. NEUROLOGICAL: Awake and alert. No obvious cranial nerve deficits. Normal speech. PSYCHIATRIC: Appropriate mood and affect; insight and judgment normal. Laboratory Laboratory Tests Test 11/13/16 11/14/16 16:59 06:16 Prothrombin Time 11.4 SEC 11.5 SEC Prothromb Time International 1.0 RATIO 1.0 RATIO Ratio Imaging Last Impressions Myocardial Perfusion Scan Nuc Med 11/12/16 0000 Signed Impressions: Service Date/Time: Saturday, November 12, 2016 13:52 - CONCLUSION: Suspected ischemia throughout the inferior wall and at the basal portions of the septum, anterior and lateral dumont. RISK CATEGORY: Intermediate (1-3%% Annual Mortality Rate) Nico Parsons MD Neck Magnetic Resonance Angiography 11/11/16 0747 Signed Impressions: Service Date/Time: Friday, November 11, 2016 11:01 - CONCLUSION: No acute disease. Nico Parsons MD Brain MRI 11/11/16 0747 Signed Impressions: Service Date/Time: Friday, November 11, 2016 11:01 - CONCLUSION: 1. Age-related atrophy. 2. Widespread demyelination in the cerebral white matter likely from small vessel ischemic change. 3. 1.5 cm area of signal abnormality in the diffusion weighted images at the right parietal white matter likely representing a subacute area of infarction. Nico Parsons MD Head Magnetic Resonance Angiography 11/11/16 0000 Signed Impressions: Service Date/Time: Friday, November 11, 2016 11:01 - CONCLUSION: No acute disease. Nico Parsons MD Head CT 11/10/161836 Signed Impressions: Service Date/Time: Thursday, November 10, 2016 19:02 - CONCLUSION: No acute intracranial abnormality. Atrophy and chronic white matter changes. Nico Mendes MD Chest X-Ray 11/10/161836 Signed Impressions: Service Date/Time: Thursday, November 10, 2016 19:07 - CONCLUSION: No acute disease. Jona Lundberg MD Assessment and Plan Problem List: (1) Wide-complex tachycardia (2) CVA (cerebral infarction) Assessment and Plan CVA with left sided upper extremity weakness - CATHIE yesterday was normal, coumadin has been initiated. INR today 1.0. PCP to manage INR in outpatient setting. ok for discharge. Ramya Coughlin Nov 14, 2016 08:50
[2016-11-14] MEDS ORDERED: PANTOPRAZOLE SOD 40 MG DELAYED RELEASE TAB PO SCH (09:00)
[2016-11-14] MEDS: SODIUM CHLORIDE 0.9% FLUSH 5 ML FLUSH IVF SCH (09:00)
[2016-11-14] MEDS ORDERED: ASPIRIN EC 81 MG TABEC PO SCH (09:00)
[2016-11-14] MEDS ORDERED: ASPIRIN EC 325 MG TABEC PO SCH (09:00)
[2016-11-14] MEDS: METOPROLOL TARTRATE 50 MG TAB PO SCH (09:20)
[2016-11-14] MEDS: CYANOCOBALAMIN 1000 MCG/ML VIAL SQ SCH (09:20)
[2016-11-14] MEDS: LISINOPRIL 10 MG TAB PO SCH (09:21)
--- NOTE | 2016-11-14 10:15 | HHI.PR ---
Subjective Remarks Pt threatening to leave AMA. States he doesn't have a PCP but doesn't want to stay in the hospital, at bedside I explained to him the plan. He is upset and claims that he never received the coumadin while in the hospital. I explained to him that he did get it yesterday and it has been adjusted today. He is upset about his diet. He even said that Dr. Cazares told him that he could monitor this as an outpatient. I spoke personally w Dr. Cazares and he did not tell the patient this information. Pt will not need any f/u with him as an outpatient. Pt was very unpleasant during our encounter and on multiple occasions, say " good bye" while I was speaking with his Objective Vitals Vital Signs Date Time Temp Pulse Resp B/P Pulse Ox O2 Delivery O2 Flow Rate FiO2 11/14/16 08:00 97.4 54 18 133/75 96 11/14/16 04:20 97.4 54 18 118/72 92 11/14/16 00:14 97.2 18 18 125/61 92 11/13/16 20:18 99.4 89 19 150/72 92 11/13/16 18:11 93 21 11/13/16 16:00 99.2 95 18 163/91 97 11/13/16 12:00 98.1 67 18 167/96 93 I/O 11/13/16 11/13/16 11/13/16 11/14/16 11/14/16 11/14/16 07:00 15:00 23:00 07:00 15:00 23:00 Intake Total 240 ml 240 ml 480 ml 240 ml Balance 240 ml 240 ml 480 ml 240 ml Intake Oral 240 ml 240 ml 480 ml 240 ml # Voids 2 3 2 1 # Bowel Movements 0 1 1 0 Result Diagram: 11/10/16 1845 11/12/16 0906 Imaging Last Impressions Myocardial Perfusion Scan Nuc Med 11/12/16 0000 Signed Impressions: Service Date/Time: Saturday, November 12, 2016 13:52 - CONCLUSION: Suspected ischemia throughout the inferior wall and at the basal portions of the septum, anterior and lateral dumont. RISK CATEGORY: Intermediate (1-3%% Annual Mortality Rate) Nico Parsons MD Neck Magnetic Resonance Angiography 11/11/16 0747 Signed Impressions: Service Date/Time: Friday, November 11, 2016 11:01 - CONCLUSION: No acute disease. Nico Parsons MD Brain MRI 11/11/16 0747 Signed Impressions: Service Date/Time: Friday, November 11, 2016 11:01 - CONCLUSION: 1. Age-related atrophy. 2. Widespread demyelination in the cerebral white matter likely from small vessel ischemic change. 3. 1.5 cm area of signal abnormality in the diffusion weighted images at the right parietal white matter likely representing a subacute area of infarction. Nico Parsons MD Head Magnetic Resonance Angiography 11/11/16 0000 Signed Impressions: Service Date/Time: Friday, November 11, 2016 11:01 - CONCLUSION: No acute disease. Nico Parsons MD Head CT 11/10/161836 Signed Impressions: Service Date/Time: Thursday, November 10, 2016 19:02 - CONCLUSION: No acute intracranial abnormality. Atrophy and chronic white matter changes. Nico Mendes MD Chest X-Ray 11/10/161836 Signed Impressions: Service Date/Time: Thursday, November 10, 2016 19:07 - CONCLUSION: No acute disease. Jona Lundberg MD Objective Remarks GENERAL: in NAD CARDIOVASCULAR: Regular rate and rhythm without murmurs RESPIRATORY: Breath sounds equal bilaterally. No accessory muscle use. GASTROINTESTINAL: Abdomen soft, non-tender, nondistended. NEURO: AAO X 3. CN 2-12 intact. sensation and coordination grossly intact. 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 and he is has difficulty lifting his left upper extremity A/P Problem List: (1) Left arm weakness ICD Code: R29.898 Status: Acute (2) Chronic back pain ICD Code: M54.9 Status: Acute Assessment and Plan right parietal subacute infarct -deficit is left hand weakness. -CT scan negative. found on MRI. ECHO negative. CATHIE negative. -neurologist ff. -LDL >100 so on statin. Patient education on risk, benefits and side effects of statin and was started on medication. -on ASA. -Neurologist concerns for cardioembolic event due to runs of [place] so wants patient on coumadin. Per neurologist needs INR check DAILY and wants it to be read by physician DAILY until he gets back on Friday. This has been explained to patient on multiple occasions and he is threatening to leave AMA. He has no PCP that could monitor this for him. CM is attempting to see if he could establish care with someone -per Neuro once INR is therapeutic can d/c ASA. runs of [place] -valve setter consulted. -nuclear stress test reviewed and CATHIE negative. -per Cards he is cleared for discharge from cardiac standpoint uncontrolled HTN -on metoprolol and lisinopril. Chronic back pain -on tramadol. Insomnia -on ambien DVT prophylaxis: SCDs, AMALIA bell. Discharge Planning Patient has to stay in house daily for INR and coumadin dosing until he can be seen by Dr. Conklin as outpatient for INR check. He does not have a PCP to monitor his INR. Pt has been explained the importance of this on multiple occasions and continues to threaten to leave Briana Mathur MD Nov 14, 2016 10:14
[2016-11-14 11:46] VITALS: BP 118/69; PULSE 55; RESP 17; TEMP 98.1; O2SAT 95
[2016-11-14] MEDS: LACTATED RINGER'S 1000 ML IV SCH (13:15)
--- NOTE | 2016-11-14 14:48 | HHI.FF ---
Face to Face Verification Diagnosis: (1) CVA (cerebral infarction) Home Health Nursing Instructions: requires daily INR monitoring to be started tomorrow 11/15/16 including friday and friday (11/16/16,11/17/16) and results to be reported to Dr. Elkin Jennings's who has agreed to adjust pt's INR results. I have seen patient Jose Guadalupe Gale on 11/14/16. My clinical findings support the need for the requested home health care services because: requires daily INR monitoring to be started tomorrow 11/15/16 including friday and friday (11/16/16 ,11/17/16) and results to be reported to Dr. Elkin Jennings's who has agreed to adjust pt's INR results. Med compliance is questionable I certify that my clinical findings support that this patient is homebound because: Unsteady gait/balance Briana Vicente MD Nov 14, 2016 14:48
[2016-11-14] MEDS ORDERED: LISI10TA3 PO (15:03)
[2016-11-14] MEDS ORDERED: LIPI40TA PO (15:03)
[2016-11-14] MEDS ORDERED: Aspirin Ec PO (15:03)
[2016-11-14] MEDS ORDERED: COUM5TAB PO (15:03)
[2016-11-14] MEDS ORDERED: METO-309 PO (15:03)
[2016-11-14] MEDS: WARFARIN SOD 5 MG TAB PO SCH (15:28)
[2016-11-14] MEDS ORDERED: WARFARIN SOD 2.5 MG TAB PO SCH (16:00)
--- NOTE | 2016-11-16 19:39 | HHI.DS ---
Discharge Summary Admission Date Nov 10, 2016 at 21:36 Discharge Date: Nov 16, 2016 Admitting Diagnosis weakness, possible stroke (1) Left arm weakness ICD Code: R29.898 (2) Chronic back pain ICD Code: M54.9 Diagnosis: Secondary Procedures none Brief History - From Admission The patient is a 65-year-old male who presented to the emergency department with complaint of left upper extremity weakness. This started about 2 days ago. 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 He states that he knocked it over and also knocked over plates that were on the same table. His states that his gait has been abnormal, telling him that he looked like he was drunk. He denies headache, vision changes, chest pain, or dyspnea. He denies paresthesias. He has not noticed any left leg weakness. CBC/BMP: 11/12/16 0906 Imaging Last Impressions Myocardial Perfusion Scan Nuc Med 11/12/16 0000 Signed Impressions: Service Date/Time: Saturday, November 12, 2016 13:52 - CONCLUSION: Suspected ischemia throughout the inferior wall and at the basal portions of the septum, anterior and lateral dumont. RISK CATEGORY: Intermediate (1-3%% Annual Mortality Rate) Nico Parsons MD Neck Magnetic Resonance Angiography 11/11/16 0747 Signed Impressions: Service Date/Time: Friday, November 11, 2016 11:01 - CONCLUSION: No acute disease. Nico Parsons MD Brain MRI 11/11/16 0747 Signed Impressions: Service Date/Time: Friday, November 11, 2016 11:01 - CONCLUSION: 1. Age-related atrophy. 2. Widespread demyelination in the cerebral white matter likely from small vessel ischemic change. 3. 1.5 cm area of signal abnormality in the diffusion weighted images at the right parietal white matter likely representing a subacute area of infarction. Nico Parsons MD Head Magnetic Resonance Angiography 11/11/16 0000 Signed Impressions: Service Date/Time: Friday, November 11, 2016 11:01 - CONCLUSION: No acute disease. Nico Parsons MD Head CT 11/10/161836 Signed Impressions: Service Date/Time: Thursday, November 10, 2016 19:02 - CONCLUSION: No acute intracranial abnormality. Atrophy and chronic white matter changes. Nico Mendes MD Chest X-Ray 11/10/161836 Signed Impressions: Service Date/Time: Thursday, November 10, 2016 19:07 - CONCLUSION: No acute disease. Jona Lundberg MD PE at Discharge GENERAL: in NAD CARDIOVASCULAR: Regular rate and rhythm without murmurs RESPIRATORY: Breath sounds equal bilaterally. No accessory muscle use. GASTROINTESTINAL: Abdomen soft, non-tender, nondistended. NEURO: AAO X 3. CN 2-12 intact. sensation and coordination grossly intact. 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 and he is has difficulty lifting his left upper extremity Hospital Course right parietal subacute infarct -deficit is left hand weakness. -CT scan negative. found on MRI. ECHO negative. CATHIE negative. on ASA and statin. -neurologist ff. -Neurologist was concerned for cardioembolic event due to runs of VT therefore wanted patient on coumadin. Per neurologist, pt needed INR checked DAILY and wanted it to be read by a physician DAILY including friday and friday.. This has been explained to patient on multiple occasions and he is threatened to leave AMA. He did not have a PCP that could monitor this for him. Our marketing program coordinator spoke w Dr. Jaeger, who agreed to take patient under his care and monitor INR including over the week-end. Pt was discharge then w script for daily INR checks. CM arranged for home health to come daily to draw his blood and send results to Dr. Jaeger. -per Neuro once INR is therapeutic can d/c ASA. runs of VT -produce field merchandiser evaluated the patient. -nuclear stress test reviewed and CATHIE negative. Per Dr. Cazares, pt could be discharged from his standpoint. Pt Condition on Discharge: Stable Discharge Disposition: Disch w/ Home Health Serv Discharge Time: > 30 minutes Discharge Instructions DIET: Follow Instructions for: Heart Healthy Diet Activities you can perform: Regular-No Restrictions Follow up Referrals: Neurology - 1 Week with Ole Conklin MD Physician - 11/15/[address] Elkin Jaeger [facility]/ with [facility] New Orders: PT/INR - Daily New Medications: Atorvastatin (Lipitor) 40 Mg Tab 40 MG PO HS Days 30 TAB Lisinopril (Lisinopril) 10 Mg Tab 10 MG PO DAILY Days 30 TAB Metoprolol Tartrate (Lopressor) 50 Mg Tab 50 MG PO Q12HR Days 30 TAB Warfarin (Coumadin) 5 Mg Tab 5 MG PO DAILY@16 Days 30 TAB ([Aspirin Ec]) 325 MG TABEC 325 MG PO DAILY Days 30 TAB.EC Continued Medications: Oxycodone ER (OxyCONTIN ER) 40 Mg Tabcr 40 MG PO TID PRN PAIN TAB.SR Briana Vicente MD Nov 16, 2016 19:39
== END 2016-11-14 17:23 | disposition home health service (06) | DRG 65 ==
LOC: NEPC 18:31 → NEDA 21:25 → OBSVTOIN 21:36 → N06B 11-11 02:05
PROVIDERS: ADMIT Hospitalist; ATTEND Hospitalist
PROC: B24BZZ4 Ultrasonography of Heart with Aorta, Transesophageal (ICD-10-PCS; principal; 2016-11-13)
DX: I63.9 Cerebral infarction, unspecified (principal); I47.2 Ventricular tachycardia; R29.898 Other symptoms and signs involving the musculoskeletal system; G89.29 Other chronic pain; M54.9 Dorsalgia, unspecified; I10 Essential (primary) hypertension; Z96.653 Presence of artificial knee joint, bilateral; Z85.46 Personal history of malignant neoplasm of prostate; E78.00 Pure hypercholesterolemia, unspecified; G47.00 Insomnia, unspecified
CPT/HCPCS: 70450; 70544; 70548; 70553; 71010; 78452; 80048; 80053; 80061; 81001; 82550; 82552; 82607; 82948; 83036; 83735; 84425; 84439; 84443; 84484; 85025; 85610; 85652; 85730; 86038; 86592; 93005; 93017; 93225; 93226; 93306; 93312; 93320; 93325; 96374; A9502; A9579; J2785; J3420